=== PATIENT | female | born 1935 | race Caucasian/White ===

== ENCOUNTER 2017-07-02 09:24 | Observation (INO) | payer OTHER ==
[2017-07-02] MEDS ORDERED: Sodium Chloride 0.9% 5 ML Syringe FLUSH PRN ×2 (09:33→11:00)
--- NOTE | 2017-07-02 09:39 | EDM.PDOC ---
ED HPI GENERAL MEDICAL PROBLEM - General Chief Complaint: Cardiovascular Problem Stated Complaint: HEART RATE FAST Time Seen by Provider: 07/02/17 09:35 Source of Information: Reports: Patient History Limitations: Reports: No Limitations - History of Present Illness INITIAL COMMENTS - FREE TEXT/NARRATIVE: 81 YO WF presents to ER with 3 day history of palpitations. Pt reports episodes have occurred frequently but unsure how long they last. Pt denies any chest pain , shortness of breath or dizziness. Pt reports a past history of similar palpitations requiring MD visit but unsure of diagnosis or medical treatment. Pt with PMH of hypothyroidism and Htn. Onset Date: 06/30/17 Duration: Day(s): (3) Location: Reports: Chest Severity: Mild Improves with: Reports: Rest Worsens with: Reports: Movement Associated Symptoms: Reports: Weakness. Denies: Chest Pain, Cough, Diaphoresis , Fever/Chills, Nausea/Vomiting, Shortness of Breath, Syncope - Related Data Allergies Allergy/AdvReac Type Severity Reaction Status Date / Time No Known Allergies Allergy Verified 07/02/17 10:47 Home Meds: Home Meds Calcium Carbonate [Calcium] 500 mg PO BID 07/02/17 [History] Latanoprost [Latanoprost] 1 drop EYEBOTH BEDTIME 07/02/17 [History] Levothyroxine Sodium [Synthroid] 100 mcg PO ACBREAKFAST 07/02/17 [History] Lovastatin [Lovastatin] 40 mg PO BEDTIME 07/02/17 [History] Oxybutynin Chloride [Oxybutynin Chloride] 5 mg PO BEDTIME 07/02/17 [History] Timolol Maleate [Timolol Maleate] 1 drop EYEBOTH DAILY 07/02/17 [History] Zolpidem Tartrate [Zolpidem Tartrate] 5 mg PO BEDTIME PRN 07/02/17 [History] amLODIPine Besylate [Amlodipine Besylate] 10 mg PO DAILY 07/02/17 [History] glipiZIDE [Glipizide Xl] 10 mg PO DAILY 07/02/17 [History] ED ROS GENERAL - Review of Systems Review Of Systems: See Below Constitutional: Reports: No Symptoms HEENT: Reports: No Symptoms Respiratory: Reports: No Symptoms Cardiovascular: Reports: Palpitations. Denies: Chest Pain, Edema, Lightheadedness, Syncope Endocrine: Reports: No Symptoms GI/Abdominal: Reports: No Symptoms : Reports: No Symptoms Musculoskeletal: Reports: No Symptoms Skin: Reports: No Symptoms Neurological: Reports: No Symptoms Psychiatric: Reports: No Symptoms Hematologic/Lymphatic: Reports: No Symptoms Immunologic: Reports: No Symptoms ED EXAM, GENERAL - Physical Exam Exam: See Below Exam Limited By: No Limitations General Appearance: Alert, WD/WN, No Apparent Distress Nose: Normal Inspection, Normal Mucosa, No Blood Throat/Mouth: Normal Inspection, Normal Lips, Normal Teeth, Normal Gums, Normal Oropharynx, Normal Voice, No Airway Compromise Head: Atraumatic, Normocephalic Neck: Normal Inspection, Supple, Non-Tender, Full Range of Motion Respiratory/Chest: No Respiratory Distress, Lungs Clear, Normal Breath Sounds, No Accessory Muscle Use, Chest Non-Tender Cardiovascular: No Edema, No JVD, No Murmur, No Rub, Tachycardia, Irregularly Irregular GI/Abdominal: Normal Bowel Sounds, Soft, Non-Tender, No Organomegaly, No Distention, No Abnormal Bruit, No Mass Back Exam: Normal Inspection, Full Range of Motion, NT Extremities: Normal Inspection, Normal Range of Motion, Non-Tender, Normal Capillary Refill, No Pedal Edema Neurological: Alert, Oriented, CN II-XII Intact, Normal Cognition, Normal Gait, Normal Reflexes, No Motor/Sensory Deficits Psychiatric: Normal Affect, Normal Mood Skin Exam: Warm, Dry, Intact, Normal Color, No Rash Lymphatic: No Adenopathy EKG INTERPRETATION EKG Date: 07/02/17 Time: 09:49 Rhythm: A-Fib Rate (Beats/Min): 110 [place]: Normal P-Wave: Absent QRS: Normal ST-T: Normal QT: Normal Comparison: NA - No Prior EKG Course - Vital Signs Last Recorded V/S: Last Vital Signs Temp 36.0 C 07/02/17 09:48 Pulse 104 H 07/02/17 09:48 Resp 22 H 07/02/17 09:48 BP 134/63 07/02/17 09:48 Pulse Ox 94 L 07/02/17 09:48 - Orders/Labs/Meds Orders: Active Orders 24 hr Category Date Time Status Patient Status Manage Transfer [TRANSFER] Routine ADT 07/02/17 10:58 Ordered Patient Status [ADT] Routine ADT 07/02/17 11:00 Ordered Bedrest Bathroom Privileges [RC] ASDIRECTED Care 07/02/17 11:00 Active Cardiac Monitoring [RC] CONTINUOUS Care 07/02/17 11:01 Active EKG Documentation Completion [RC] ASDIRECTED Care 07/02/17 09:34 Active Oxygen Therapy [RC] PRN Care 07/02/17 11:00 Active Peripheral IV Care [RC] . DIRECTED Care 07/02/17 09:34 Active Peripheral IV Care [RC] . DIRECTED Care 07/02/17 11:02 Active VTE/DVT Education [RC] PER UNIT ROUTINE Care 07/02/17 11:00 Active Vital Signs [RC] Q4H Care 07/02/17 11:00 Active 2 Gram Sodium Diet [DIET] Diet 07/02/17 Lunch Active Chest 1V Frontal [CR] Stat Exams 07/02/17 09:33 Ordered BASIC METABOLIC PANEL,BMP [CHEM] AM Lab 07/03/17 05:11 Ordered CBC WITH AUTO DIFF [HEME] AM Lab 07/03/17 05:11 Ordered MAGNESIUM [CHEM] AM Lab 07/03/17 05:11 Ordered TROPONIN I [CHEM] AM Lab 07/03/17 05:11 Ordered TROPONIN I [CHEM] Routine Lab 07/02/17 23:00 Ordered TROPONIN I [CHEM] Timed Lab 07/02/17 17:00 Ordered Diltiazem [Cardizem CD] Med 07/02/17 11:15 Active 120 mg PO DAILY Sodium Chloride 0.9% [Syrex Flush] Med 07/02/17 09:33 Active 5 ml FLUSH Q8HR PRN Sodium Chloride 0.9% [Syrex Flush] Med 07/02/17 11:00 Active 5 ml FLUSH Q8HR PRN Peripheral IV Insertion Adult [OM.PC] Routine Oth 07/02/17 09:33 Ordered Peripheral IV Insertion Adult [OM.PC] Routine Oth 07/02/17 11:00 Ordered Resuscitation Status Routine Resus Stat 07/02/17 11:00 Ordered EKG 12 Lead [EK] Routine Ther 07/02/17 09:33 Ordered Medication Orders Diltiazem HCl (Cardizem Cd) 120 mg PO DAILY EDILIA Sodium Chloride (Syrex Flush) 5 ml FLUSH Q8HR PRN PRN Reason: Keep Vein Open Sodium Chloride (Syrex Flush) 5 ml FLUSH Q8HR PRN PRN Reason: Keep Vein Open Labs: Laboratory Tests 07/02/17 07/02/17 07/02/17 Range/Units 09:52 09:52 09:52 WBC 6.7 (5.0-10.0) 10^3/uL RBC 4.55 (3.80-5.50) 10^6/uL Hgb 12.0 (12.0-16.0) g/dL Hct 38.0 (37.0-47.0) % MCV 83.6 (82.0-92.0) fL MCH 26.5 L (27.0-31.0) pg MCHC 31.7 L (32.0-36.0) g/dL RDW 13.8 (11.5-14.5) % Plt Count 205 (150-300) 10^3/uL MPV 9.0 (7.4-10.4) fL Neut % (Auto) 65.6 (50.0-70.0) % Lymph % (Auto) 18.8 L (20.0-40.0) % Barry % (Auto) 11.1 H (2.0-8.0) % Eos % (Auto) 3.5 H (1.0-3.0) % Baso % (Auto) 1.0 (0.0-1.0) % Neut # (Auto) 4.4 (2.5-7.0) 10^3/uL Lymph # (Auto) 1.3 (1.0-4.0) 10^3/uL Barry # (Auto) 0.7 (0.1-0.8) 10^3/uL Eos # (Auto) 0.2 (0.1-0.3) 10^3/uL Baso # (Auto) 0.1 (0.0-0.1) 10^3/uL PT 9.9 (8.9-11.4) SEC INR 1.0 (0.9-1.1) APTT 25.4 (20.8-31.2) SEC Sodium 142 (136-145) mmol/L Potassium 4.1 (3.3-5.3) mmol/L Chloride 106 (98-115) mmol/L Carbon Dioxide 28.2 (21.0-32.0) mmol/L BUN 17 (6-25) mg/dL Creatinine 0.80 (0.51-1.17) mg/dL Est Cr Clr Drug Dosing 50.75 mL/min Estimated GFR (MDRD) > 60 mL/min Glucose 132 H (70-110) mg/dL Calcium 7.9 L (8.7-10.3) mg/dL Total Bilirubin 0.5 (0.2-1.0) mg/dL AST 11 L (15-37) U/L ALT 13 (12-78) U/L Alkaline Phosphatase 93 (46-116) IU/L Creatine Kinase 55 (26-276) U/L CK-MB (CK-2) 0.60 (0.00-4.30) ng/mL Troponin I < 0.04 (0.00-0.070) ng/mL Total Protein 6.7 (6.4-8.2) g/dL Albumin 3.15 (3.00-4.80) g/dL Meds: Medications Generic Name Dose Route Start Last Admin Trade Name Freq PRN Reason Stop Dose Admin Diltiazem HCl 120 mg 07/02/17 11:15 Cardizem Cd PO DAILY EDILIA Sodium Chloride 5 ml 07/02/17 09:33 Syrex Flush FLUSH Q8HR PRN Keep Vein Open Sodium Chloride 5 ml 07/02/17 11:00 Syrex Flush FLUSH Q8HR PRN Keep Vein Open - Radiology Interpretation Free Text/Narrative:: CXR- NAD Departure - Departure Time of Disposition: 10:54 Disposition: Refer to Observation Condition: Fair Clinical Impression: Atrial fibrillation Qualifiers: Atrial fibrillation type: paroxysmal Qualified Code(s): I48.0 - Paroxysmal atrial fibrillation - Discharge Information Referrals: Shelbi Fernnadez MD [Primary Care Provider] - Forms: ED Department Discharge - My Orders Last 24 Hours: My Active Orders 07/02/17 09:33 Chest 1V Frontal [CR] Stat Sodium Chloride 0.9% [Syrex Flush] 5 ml FLUSH Q8HR PRN Peripheral IV Insertion Adult [OM.PC] Routine EKG 12 Lead [EK] Routine 07/02/17 09:34 EKG Documentation Completion [RC] ASDIRECTED Peripheral IV Care [RC] . DIRECTED 07/02/17 10:58 Patient Status Manage Transfer [TRANSFER] Routine 07/02/17 11:00 Patient Status [ADT] Routine Bedrest Bathroom Privileges [RC] ASDIRECTED Oxygen Therapy [RC] PRN VTE/DVT Education [RC] PER UNIT ROUTINE Vital Signs [RC] Q4H Sodium Chloride 0.9% [Syrex Flush] 5 ml FLUSH Q8HR PRN Peripheral IV Insertion Adult [OM.PC] Routine Resuscitation Status Routine 07/02/17 11:01 Cardiac Monitoring [RC] CONTINUOUS 07/02/17 11:02 Peripheral IV Care [RC] . DIRECTED 07/02/17 11:15 Diltiazem [Cardizem CD] 120 mg PO DAILY 07/02/17 17:00 TROPONIN I [CHEM] Timed 07/02/17 23:00 TROPONIN I [CHEM] Routine 07/02/17 Lunch 2 Gram Sodium Diet [DIET] 07/03/17 05:11 BASIC METABOLIC PANEL,BMP [CHEM] AM CBC WITH AUTO DIFF [HEME] AM MAGNESIUM [CHEM] AM TROPONIN I [CHEM] AM - Assessment/Plan Last 24 Hours: My Active Orders 07/02/17 09:33 Chest 1V Frontal [CR] Stat Sodium Chloride 0.9% [Syrex Flush] 5 ml FLUSH Q8HR PRN Peripheral IV Insertion Adult [OM.PC] Routine EKG 12 Lead [EK] Routine 07/02/17 09:34 EKG Documentation Completion [RC] ASDIRECTED Peripheral IV Care [RC] . DIRECTED 07/02/17 10:58 Patient Status Manage Transfer [TRANSFER] Routine 07/02/17 11:00 Patient Status [ADT] Routine Bedrest Bathroom Privileges [RC] ASDIRECTED Oxygen Therapy [RC] PRN VTE/DVT Education [RC] PER UNIT ROUTINE Vital Signs [RC] Q4H Sodium Chloride 0.9% [Syrex Flush] 5 ml FLUSH Q8HR PRN Peripheral IV Insertion Adult [OM.PC] Routine Resuscitation Status Routine 07/02/17 11:01 Cardiac Monitoring [RC] CONTINUOUS 07/02/17 11:02 Peripheral IV Care [RC] . DIRECTED 07/02/17 11:15 Diltiazem [Cardizem CD] 120 mg PO DAILY 07/02/17 17:00 TROPONIN I [CHEM] Timed 07/02/17 23:00 TROPONIN I [CHEM] Routine 07/02/17 Lunch 2 Gram Sodium Diet [DIET] 07/03/17 05:11 BASIC METABOLIC PANEL,BMP [CHEM] AM CBC WITH AUTO DIFF [HEME] AM MAGNESIUM [CHEM] AM TROPONIN I [CHEM] AM Assessment:: 1. Atrial Fibrillation CVR Plan: 1. Admit for 23 hour obs for Atrial Fib 2. consider starting rate control medication and anti-coagulation 3. supportive care
[2017-07-02 10:44] LABS: CHLORIDE,CL 106 mmol/L (98-115); SODIUM,NA 142 mmol/L (136-145)
[2017-07-02] MEDS ORDERED: Zolpidem 5 MG Tab PO PRN (12:07)
--- NOTE | 2017-07-02 12:17 | PCM.HP ---
H&P History of Present Illness - General Date of Service: 07/02/17 Source of Information: Patient, Family, RN History Limitations: Reports: No Limitations - History of Present Illness Initial Comments - Free Text/Narative: Presents for concerns of palpitations. she states they have been present over the past 3 days intermittent. Description of a flutter sensation in her chest. the prior 2 days symptoms have occurred in the evening. There has been no chest pain, SOB, diaphoresis, nausea or vomiting. No dizziness or lightheadedness. She states she remembers this happening in the remote past x 1. Approximately 5 to 6 years ago. there has been no recent exacerbation until the past 3 days. Onset of Symptoms: Reports: Other (Monday evening) Symptom Onset Date: 06/30/17 Duration of Symptoms: Reports: Minutes:, Intermittent Location: Reports: Chest Quality: Reports: Other (flutter sensation) Severity: Moderate Improves with: Reports: Rest Worsens with: Reports: None Associated Symptoms: Reports: No Other Symptoms - Related Data Allergies/Adverse Reactions: Allergies Allergy/AdvReac Type Severity Reaction Status Date / Time No Known Allergies Allergy Verified 07/02/17 10:47 Home Medications: Home Meds Calcium Carbonate [Calcium] 500 mg PO BID 07/02/17 [History] Latanoprost [Latanoprost] 1 drop EYEBOTH BEDTIME 07/02/17 [History] Levothyroxine Sodium [Synthroid] 100 mcg PO ACBREAKFAST 07/02/17 [History] Lovastatin [Lovastatin] 40 mg PO BEDTIME 07/02/17 [History] Oxybutynin Chloride [Oxybutynin Chloride] 5 mg PO BEDTIME 07/02/17 [History] Timolol Maleate [Timolol Maleate] 1 drop EYEBOTH DAILY 07/02/17 [History] Zolpidem Tartrate [Zolpidem Tartrate] 5 mg PO BEDTIME PRN 07/02/17 [History] amLODIPine Besylate [Amlodipine Besylate] 10 mg PO DAILY 07/02/17 [History] glipiZIDE [Glipizide Xl] 10 mg PO DAILY 07/02/17 [History] Past Medical History Cardiovascular History: Reports: High Cholesterol, Hypertension, Other (See Below) (hypercholesterolemia) Respiratory History: Reports: COPD Musculoskeletal History: Reports: Osteoarthritis Endocrine/Metabolic History: Reports: Diabetes, Type II, Hypothyroidism, Other ( See Below) (history of thyroid cancer) Hematologic History: Reports: Anemia - Past Surgical History HEENT Surgical History: Reports: Other (See Below) (thyroidectomey) GI Surgical History: Reports: Appendectomy, Cholecystectomy Female Surgical History: Reports: Hysterectomy Musculoskeletal Surgical History: Reports: Joint Replacement (laminectomy) Social & Family History - Family History Family Medical History: Noncontributory - Tobacco Use Smoking Status *Q: Never Smoker - Living Situation & Occupation Living situation: Reports: , Other (resides at the [facility] [place]) H&P Review of Systems - Review of Systems: Review Of Systems: See Below General: Reports: No Symptoms HEENT: Reports: No Symptoms Pulmonary: Reports: No Symptoms Cardiovascular: Reports: Palpitations. Denies: Chest Pain, Dyspnea on Exertion , Lightheadedness Gastrointestinal: Reports: No Symptoms Genitourinary: Reports: Other (urinary frequency at night. does take Ditropan) Musculoskeletal: Reports: No Symptoms Skin: Reports: No Symptoms Neurological: Reports: No Symptoms Exam - Exam Exam: See Below - Vital Signs Vital Signs: Last Vital Signs Temp 96.8 F 07/02/17 09:48 Pulse 104 H 07/02/17 09:48 Resp 22 H 07/02/17 09:48 BP 134/63 07/02/17 09:48 Pulse Ox 94 L 07/02/17 09:48 Weight: 180 lb - Exam General: Alert, Oriented, Cooperative HEENT: Conjunctiva Clear, Mucosa Moist & [place] Neck: Supple Lungs: Clear to Auscultation Cardiovascular: Irregular Rhythm GI/Abdominal Exam: Normal Bowel Sounds, Soft, Non-Tender Back Exam: Normal Inspection Extremities: Normal Inspection - Patient Data Result Diagrams: 07/02/17 09:52 07/02/17 09:52 *Q Meaningful Use (ADM) - VTE *Q VTE Criteria *Q: - Stroke *Q Stroke Criteria *Q: - AMI *Q AMI Criteria *Q: Problem List Initiated/Reviewed/Updated: Yes Orders Last 24hrs: Active Orders 24 hr Category Date Time Status Calcium Carbonate [Calcium] Med 07/03/17 09:00 Ordered 500 mg PO BID Diltiazem [Cardizem CD] Med 07/02/17 11:15 Active 120 mg PO DAILY Latanoprost [Xalatan 0.005% Ophth Soln] Med 07/02/17 21:00 Ordered DOSE ml EYEBOTH BEDTIME Levothyroxine [Synthroid] Med 07/03/17 07:30 Ordered 100 mcg PO ACBREAKFAST Lovastatin [Lovastatin] Med 07/02/17 21:00 Ordered 40 mg PO BEDTIME Oxybutynin Med 07/02/17 21:00 Ordered 5 mg PO BEDTIME Timolol Maleate [Timolol Maleate] Med 07/03/17 09:00 Ordered 1 drop EYEBOTH DAILY Zolpidem [Ambien] Med 07/02/17 12:07 Ordered 5 mg PO BEDTIME PRN amLODIPine Besylate [Amlodipine Besylate] Med 07/03/17 09:00 Ordered 10 mg PO DAILY glipiZIDE [Glipizide Xl] Med 07/03/17 09:00 Ordered 10 mg PO DAILY Medication Orders Diltiazem HCl (Cardizem Cd) 120 mg PO DAILY EDILIA Latanoprost (Xalatan 0.005% Ophth Soln) ml EYEBOTH BEDTIME EDILIA Levothyroxine Sodium (Synthroid) 100 mcg PO ACBREAKFAST EDILIA Non-Formulary Medication (Amlodipine Besylate [Amlodipine Besylate]) 10 mg PO DAILY EDILIA Non-Formulary Medication (Calcium Carbonate [Calcium]) 500 mg PO BID EDILIA Non-Formulary Medication (Glipizide [Glipizide Xl]) 10 mg PO DAILY EDILIA Non-Formulary Medication (Lovastatin [Lovastatin]) 40 mg PO BEDTIME EDILIA Non-Formulary Medication (Timolol Maleate [Timolol Maleate]) 1 drop EYEBOTH DAILY EDILIA Oxybutynin Chloride (Oxybutynin) 5 mg PO BEDTIME EDILIA Sodium Chloride (Syrex Flush) 5 ml FLUSH Q8HR PRN PRN Reason: Keep Vein Open Sodium Chloride (Syrex Flush) 5 ml FLUSH Q8HR PRN PRN Reason: Keep Vein Open Zolpidem Tartrate (Ambien) 5 mg PO BEDTIME PRN PRN Reason: Insomnia Assessment/Plan Comment:: assessment and plan. A-fib with rapid ventricular response. EKG obtained. cbc, TSH, bmp,magesium, troponin obtained. series labs to follow. CXR will be obtained. Patient to be placed on telemetry with routine telemetry orders. Diltiazem 120 mg initiated oral. Eliquis 5 mg BID. Type 2 diabetes. Receives Glipizide. Hypercholesterolemia. Treated with Mevacor. HTN. Managed with Norvasc, Hypothyroidism. receives Levothyroxine. Insomnia. Takes Ambien 5 mg at HS OAB. Ditropan as needed. Discussed case/observation admission with Dr. Peterson.
[2017-07-02] MEDS: Diltiazem 120 MG Cap.CD PO SCH (12:33)
[2017-07-02] MEDS: Apixaban 5 MG Tab PO SCH (20:24)
[2017-07-02] MEDS ORDERED: Oxybutynin 5 MG Tab PO SCH (21:00)
[2017-07-02] MEDS ORDERED: Latanoprost 0.005% Ophth Soln 2.5 ML Bottle EYEBOTH SCH (21:00)
[2017-07-03] MEDS ORDERED: Levothyroxine 100 MCG Tab PO SCH (07:30)
[2017-07-03 08:08] LABS: CHLORIDE,CL 107 mmol/L (98-115); SODIUM,NA 143 mmol/L (136-145)
[2017-07-03] MEDS: Apixaban 5 MG Tab PO SCH ×2 (08:37→11:42)
[2017-07-03] MEDS: Diltiazem 120 MG Cap.CD PO SCH (08:37)
[2017-07-03] MEDS ORDERED: Calcium Carbonate 500 MG Tab.Chew PO SCH (09:00)
[2017-07-03] MEDS ORDERED: amLODIPine 5 MG Tab PO SCH (09:00)
[2017-07-03] MEDS ORDERED: glipiZIDE 5 MG Tab.ER PO SCH (09:00)
[2017-07-03] MEDS ORDERED: Timolol Maleate 0.5% Ophth Soln 15 ML Bottle EYEBOTH SCH (09:00)
--- NOTE | 2017-07-03 10:20 | PCM.DCSUM1 ---
Discharge Summary - Hospital Course Free Text/Narrative:: Pt was admitted to [facility] for observation after presenting to the ER with 3 days of intermittent heart palpitations which she described at a flutter sensation in her chest. There was no chest pain, SOB, diaphoresis, nausea or vomiting. No dizziness or lightheadedness. She was admitted to Acute care/observation with AFib, RVR and started on diltiazem 120 mg daily for rate control and Eliquis 5 mg bid for anticoagulation. Pt reports similar symptoms in the remote past x 1. Approximately 5 to 6 years ago. A review of her [facility] chart ECHO in 2011 shows: Ejection fraction was estimated to be 60 %. There were no regionalwall motion abnormalities. Wall thickness was moderately increased. Aortic valve, LVOT: The valve was probably tricuspid. Aortic cusps demonstrated mildly increased thickness. There was mild regurgitation. Mitral valve: There was minimal leaflet thickening. There was mild regurgitation. Pt has been on no anticoagulation since then. On an EKG earlier this year (11/01/16) she was in sinus bradycardia, heart rate 59. On day of discharge her heart rate is 84, She is on telemetry and continues in AFib. She reports no further palpitations, states she feels well and is ready to go home. Pt has hypothyroidism post thyroidectomy for thyroid cancer. TSH 05/02/17 was borderline low at 0.41. She has been on levothyroxine 100 mcg. TSH today continues low at 0.450. Pt has diabetes managed with glipizide XL 10 mg daily. She is on a statin. Pt has hypertension managed with amlodipine 10 mg daily. - Discharge Data Discharge Date: 07/03/17 Discharge Disposition: Home, Self-Care 01 Condition: Good - Discharge Diagnosis/Problem(s) (1) Atrial fibrillation SNOMED Code(s): 58576018 ICD Code: I48.91 - UNSPECIFIED ATRIAL FIBRILLATION Status: Acute Current Visit: Yes Qualifiers: Atrial fibrillation type: paroxysmal Qualified Code(s): I48.0 - Paroxysmal atrial fibrillation (2) Hypothyroidism SNOMED Code(s): 87630736 ICD Code: E03.9 - HYPOTHYROIDISM, UNSPECIFIED Status: Acute Current Visit : Yes Qualifiers: Hypothyroidism type: postoperative Qualified Code(s): E89.0 - Postprocedural hypothyroidism - Patient Summary/Data Recommended Follow-up Testing/Procedures: Follow up with PCP in 1 week. REcheck TSH in 6-8 weeks. At that time can decide if repeat ECHO is indicated. Hospital Course: Pt was admitted to [facility] for observation after presenting to the ER with 3 days of intermittent heart palpitations which she described at a flutter sensation in her chest. There was no chest pain, SOB, diaphoresis, nausea or vomiting. No dizziness or lightheadedness. She was admitted to Acute care/observation with AFib, RVR and started on diltiazem 120 mg daily for rate control and Eliquis 5 mg bid for anticoagulation. On discharge she denies any palpitations or fluttering sensation. Heart rate is 80s 1. AFib with RVR: Will continue on eliquis 5 mg bid for anticoagulation. She has been on Amlodipine for htn. and was started on diltiazem in ER for rate control. Will stop the diltiazem, a second Ca channel lazaro and change to Metoprolol succinate 25 mg daily. BP has been acceptable in the hospital at 111 /65 while on both calcium channel blockers. 2. She has hypothryoidism and has been on levothryoxine 100 mcg. TSH 0.450 may be contributing/cause of the AFib with RVR. Will decrease levothyroxine to 88 mcg daily and follow up in the clinic with a repeat TSH in 6-8 weeks. Given her age and previous ECHO with minimal valvular abnormalities, will determine if repeat ECHO is warranted after TSH is improved. 3. Hypertension: continue on amlodipine. Will monitor BP with addition of metoprolol for rate control. 4. Diabetes: continue on glipizide and statin. She is to follow up with PCP in 1 week. - Patient Instructions Diet: Diabetic Diet Activity: As Tolerated Showering/Bathing: May Shower - Discharge Plan Prescriptions/Med Rec: Apixaban [Eliquis] 5 mg PO BID #60 tablet Levothyroxine [Synthroid] 88 mcg PO ACBREAKFAST 60 Days tablet Metoprolol Succinate [Toprol XL] 25 mg PO DAILY #30 tab.er Home Medications: Home Meds Calcium Carbonate [Calcium] 500 mg PO BID 07/02/17 [History] Latanoprost 1 drop EYEBOTH BEDTIME 07/02/17 [History] Lovastatin 40 mg PO BEDTIME 07/02/17 [History] Oxybutynin Chloride 5 mg PO BEDTIME 07/02/17 [History] Timolol Maleate 1 drop EYEBOTH DAILY 07/02/17 [History] Zolpidem Tartrate 5 mg PO BEDTIME PRN 07/02/17 [History] amLODIPine Besylate [Amlodipine Besylate] 10 mg PO DAILY 07/02/17 [History] glipiZIDE [Glipizide Xl] 10 mg PO DAILY 07/02/17 [History] Apixaban [Eliquis] 5 mg PO BID #60 tablet 07/03/17 [Rx] Calcium Carbonate [Tums] 500 mg PO BID tab.chew 07/03/17 [Rx] Levothyroxine [Synthroid] 88 mcg PO ACBREAKFAST 60 Days tablet 07/03/17 [Rx] Metoprolol Succinate [Toprol XL] 25 mg PO DAILY #30 tab.er 07/03/17 [Rx] Forms: ED Department Discharge Referrals: Shelbi Fernandez MD [Primary Care Provider] - - General Info Date of Service: 07/03/17 Admission Dx/Problem (Free Text: AFib with RVR Hypothyroidism, overmedicated Diabetes Subjective Update: Reports feeling well. Denies any further palpitations. No cardiorespiratory symptoms - Review of Systems General: Reports: No Symptoms HEENT: Reports: No Symptoms Pulmonary: Reports: No Symptoms Cardiovascular: Reports: No Symptoms (denies palpitations, shortness of breath, chest pain.) Gastrointestinal: Reports: No Symptoms Genitourinary: Reports: No Symptoms Musculoskeletal: Reports: No Symptoms Skin: Reports: No Symptoms Neurological: Reports: No Symptoms Psychiatric: Reports: No Symptoms - Patient Data Vitals - Most Recent: Last Vital Signs Temp 98.1 F 07/03/17 06:33 Pulse 104 H 07/03/17 08:37 Resp 20 07/03/17 06:33 BP 111/65 07/03/17 08:37 Pulse Ox 95 07/03/17 06:33 Weight - Most Recent: 180 lb I&O - Last 24 hours: Intake & Output 07/02/17 07/03/17 07/03/17 22:59 06:59 14:59 Intake Total 800 300 Output Total 200 200 Balance 600 100 Lab Results - Last 24 hrs: Laboratory Results - last 24 hr 07/02/17 07/02/17 07/03/17 Range/Units 17:05 23:00 03:30 WBC (5.0-10.0) 10^3/uL RBC (3.80-5.50) 10^6/uL Hgb (12.0-16.0) g/dL Hct (37.0-47.0) % MCV (82.0-92.0) fL MCH (27.0-31.0) pg MCHC (32.0-36.0) g/dL RDW (11.5-14.5) % Plt Count (150-300) 10^3/uL MPV (7.4-10.4) fL Add Manual Diff Neutrophils % (Manual) (50-70) % Lymphocytes % (Manual) (20-40) % Monocytes % (Manual) (2-8) % Eosinophils % (Manual) (1-3) % Basophils % (Manual) (0-1) % Sodium (136-145) mmol/L Potassium (3.3-5.3) mmol/L Chloride (98-115) mmol/L Carbon Dioxide (21.0-32.0) mmol/L BUN (6-25) mg/dL Creatinine (0.51-1.17) mg/dL Est Cr Clr Drug Dosing mL/min Estimated GFR (MDRD) mL/min Glucose (70-110) mg/dL Calcium (8.7-10.3) mg/dL Magnesium (1.8-2.4) mg/dL Troponin I < 0.04 0.04 (0.00-0.070) ng/mL TSH, Ultra Sensitive (0.340-4.820) uIU/mL Specimen Type Urincc Urine Color Light yellow (YELLOW) Urine Appearance Clear (CLEAR) Urine pH 6.5 (5.0-9.0) Ur Specific [employer] 1.010 (1.005-1.030) Urine Protein Negative (NEGATIVE) mg/dL Urine Glucose (UA) Negative (NEGATIVE) mg/dL Urine Ketones Negative (NEGATIVE) mg/dL Urine Occult Blood Negative (NEGATIVE) Urine Nitrite Negative (NEGATIVE) Urine Bilirubin Negative (NEGATIVE) Urine Urobilinogen 0.2 (0.2-1.0) E.U./dL Ur Leukocyte Esterase Negative (NEGATIVE) Urine RBC Not seen /HPF Urine WBC 5-10 H /HPF Ur Epithelial Cells Rare /LPF Urine Bacteria Rare (NONE TO FEW) /HPF 07/03/17 07/03/17 07/03/17 Range/Units 07:15 07:15 07:15 WBC 6.2 (5.0-10.0) 10^3/uL RBC 4.16 (3.80-5.50) 10^6/uL Hgb 11.1 L (12.0-16.0) g/dL Hct 33.8 L (37.0-47.0) % MCV 81.2 L (82.0-92.0) fL MCH 26.8 L (27.0-31.0) pg MCHC 33.0 (32.0-36.0) g/dL RDW 14.3 (11.5-14.5) % Plt Count 171 (150-300) 10^3/uL MPV 9.2 (7.4-10.4) fL Add Manual Diff Yes Neutrophils % (Manual) 65 (50-70) % Lymphocytes % (Manual) 19 L (20-40) % Monocytes % (Manual) 10 H (2-8) % Eosinophils % (Manual) 6 H (1-3) % Basophils % (Manual) 0 (0-1) % Sodium 143 (136-145) mmol/L Potassium 3.6 (3.3-5.3) mmol/L Chloride 107 (98-115) mmol/L Carbon Dioxide 25.6 (21.0-32.0) mmol/L BUN 16 (6-25) mg/dL Creatinine 0.73 (0.51-1.17) mg/dL Est Cr Clr Drug Dosing 55.62 mL/min Estimated GFR (MDRD) > 60 mL/min Glucose 104 (70-110) mg/dL Calcium 7.6 L (8.7-10.3) mg/dL Magnesium 2.0 (1.8-2.4) mg/dL Troponin I < 0.04 (0.00-0.070) ng/mL TSH, Ultra Sensitive 0.450 (0.340-4.820) uIU/mL Specimen Type Urine Color (YELLOW) Urine Appearance (CLEAR) Urine pH (5.0-9.0) Ur Specific [employer] (1.005-1.030) Urine Protein (NEGATIVE) mg/dL Urine Glucose (UA) (NEGATIVE) mg/dL Urine Ketones (NEGATIVE) mg/dL Urine Occult Blood (NEGATIVE) Urine Nitrite (NEGATIVE) Urine Bilirubin (NEGATIVE) Urine Urobilinogen (0.2-1.0) E.U./dL Ur Leukocyte Esterase (NEGATIVE) Urine RBC /HPF Urine WBC /HPF Ur Epithelial Cells /LPF Urine Bacteria (NONE TO FEW) /HPF Med Orders - Current: Current Medications Amlodipine Besylate (Norvasc) 10 mg PO DAILY [facility] Last Admin: 07/03/17 08:37 Dose: 10 mg Apixaban (Eliquis) 5 mg PO BID [facility] Last Admin: 07/03/17 08:37 Dose: 5 mg Calcium Carbonate/Glycine (Tums) 500 mg PO BID [facility] Last Admin: 07/03/17 08:37 Dose: 500 mg Glipizide (Glucotrol Xl) 10 mg PO DAILY [facility] Last Admin: 07/03/17 08:37 Dose: 10 mg Latanoprost (Xalatan 0.005% Ophth Soln) 0 ml EYEBOTH BEDTIME [facility] Last Admin: 07/02/17 20:24 Dose: 1 drop Levothyroxine Sodium (Synthroid) 88 mcg PO ACBREAKFAST [facility] Lovastatin (Mevacor) 40 mg PO BEDTIME [facility] Last Admin: 07/02/17 20:24 Dose: 40 mg Metoprolol Succinate (Toprol Xl) 25 mg PO DAILY [facility] Oxybutynin Chloride (Oxybutynin) 5 mg PO BEDTIME [facility] Last Admin: 07/02/17 20:24 Dose: 5 mg Sodium Chloride (Syrex Flush) 5 ml FLUSH Q8HR PRN PRN Reason: Keep Vein Open Timolol Maleate (Timoptic 0.5% Ophth Soln) 0 ml EYEBOTH DAILY [facility] Last Admin: 07/03/17 08:41 Dose: 1 drop Zolpidem Tartrate (Ambien) 5 mg PO BEDTIME PRN PRN Reason: Insomnia Last Admin: 07/02/17 20:25 Dose: 5 mg Discontinued Medications Diltiazem HCl (Cardizem Cd) 120 mg PO DAILY [facility] Last Admin: 07/03/17 08:37 Dose: 120 mg Levothyroxine Sodium (Synthroid) 100 mcg PO ACBREAKFAST [facility] Last Admin: 07/03/17 07:31 Dose: 100 mcg Sodium Chloride (Syrex Flush) 5 ml FLUSH Q8HR PRN PRN Reason: Keep Vein Open - Exam General: Reports: Alert, Oriented, No Acute Distress Lungs: Reports: Clear to Auscultation Cardiovascular: Reports: Irregular Rhythm (heart rate irregular 84 BPM) GI/Abdominal Exam: Soft, Non-Tender Extremities: No Pedal Edema Psy/Mental Status: Reports: Alert, Normal Affect, Normal Mood EKG INTERPRETATION Rhythm: A-Fib *Q Meaningful Use (DIS) - VTE *Q VTE Criteria *Q: - Stroke *Q Stroke Criteria *Q: - AMI *Q AMI Criteria *Q:
[2017-07-04] MEDS ORDERED: Levothyroxine 88 MCG Tab PO SCH (07:30)
[2017-07-04] MEDS ORDERED: Metoprolol Succinate 25 MG Tab.ER PO SCH (09:00)
== END 2017-07-03 13:45 | disposition home or self-care (01) ==
LOC: KA.ED 09:24 → KA.MS 11:00
PROVIDERS: ADMIT Physician Assistant Medical; ATTEND Family Medicine
DX: I48.91 Unspecified atrial fibrillation (principal); E89.0 Postprocedural hypothyroidism; E11.9 Type 2 diabetes mellitus without complications; I10 Essential (primary) hypertension; E78.00 Pure hypercholesterolemia, unspecified; J44.9 Chronic obstructive pulmonary disease, unspecified; M19.90 Unspecified osteoarthritis, unspecified site; G47.00 Insomnia, unspecified; N32.81 Overactive bladder; Z85.850 Personal history of malignant neoplasm of thyroid; Z79.899 Other long term (current) drug therapy; Z90.49 Acquired absence of other specified parts of digestive tract; Z90.710 Acquired absence of both cervix and uterus
CPT/HCPCS: 36415; 71010; 80048; 80053; 81001; 82550; 82553; 83735; 84443; 84484; 85025; 85610; 85730; 93005; 99285; A9270; G0378

== ENCOUNTER 2017-07-17 09:50 | Inpatient (IN) | payer OTHER ==
[2017-07-17] MEDS ORDERED: Sodium Chloride 0.9% 5 ML Syringe FLUSH PRN (17:11)
[2017-07-17] MEDS ORDERED: Lidocaine 2% 100 MG/5 ML Syringe IVPUSH PRN (17:31)
[2017-07-17] MEDS ORDERED: Atropine 0.1 MG/ML 10 ML Syringe IVPUSH PRN (17:31)
[2017-07-17] MEDS ORDERED: EPINEPHrine 1:10,000 1 MG/10 ML Syringe IVPUSH PRN (17:31)
[2017-07-17] MEDS ORDERED: Nitroglycerin 0.4 MG Tab.SL SL PRN (17:31)
[2017-07-17] MEDS: Furosemide 40 MG/4 ML VIAL IVPUSH SCH (18:17)
[2017-07-17] MEDS: Latanoprost 0.005% Ophth Soln 2.5 ML Bottle EYEBOTH SCH (20:39)
[2017-07-17] MEDS: Zolpidem 5 MG Tab PO PRN (20:44)
[2017-07-17] MEDS: Oxybutynin 5 MG Tab PO SCH (20:44)
[2017-07-17] MEDS: Metoprolol Tartrate 50 MG Tab PO SCH (20:44)
[2017-07-17] MEDS: Apixaban 5 MG Tab PO SCH (20:44)
[2017-07-17] MEDS: Timolol Maleate 0.5% Ophth Soln 15 ML Bottle EYEBOTH SCH (20:47)
[2017-07-18] MEDS: Acetaminophen 325 MG Tab PO PRN (03:33)
[2017-07-18] MEDS: Furosemide 40 MG/4 ML VIAL IVPUSH SCH (09:35)
[2017-07-18] MEDS: glipiZIDE 5 MG Tab.ER PO SCH (09:35)
[2017-07-18] MEDS: Timolol Maleate 0.5% Ophth Soln 15 ML Bottle EYEBOTH SCH ×2 (09:36→21:01)
[2017-07-18] MEDS: Metoprolol Tartrate 50 MG Tab PO SCH ×2 (09:37→21:01)
[2017-07-18] MEDS: Apixaban 5 MG Tab PO SCH ×2 (09:53→21:01)
--- NOTE | 2017-07-18 17:16 | PN ---
07/18/2017 PATIENT NAME: LATONYA SAHNI CHIEF COMPLAINT: Does feel better. She has been placed on telemetry. Her heart rate has improved tremendously, however, still approximately 100 to 110. HISTORY: This 81-year-old female was admitted yesterday by Dr. Shelbi Fernandez and the patient came into the clinic and she was admitted for atrial fibrillation with rapid ventricular response. She was recently discharged from [facility] on 2016, when she was admitted for atrial fibrillation with RVR. At that time, I thought it was due to hypothyroidism. The patient's thyroid replacement therapy was reduced to 88 mcg daily and she states that she has continued on these doses over the past few days. However, when she was seen at the clinic, she felt quite weak and unsteady on her feet. She did have some increased trouble breathing. She does have congestive heart failure. Echocardiogram most recently in the clinic showed evidence of small pericardial effusion, bilateral pleural effusions with the EF of 50 with a marked dilated left atrium and right atrium. She has significant other risk factors that include hypertension and diabetes type 2. She was admitted in the hospital on telemetry for improved rate control. REVIEW OF SYSTEMS: GENERAL: Denies any fatigue. HEENT: Negative. CARDIAC: Denies any palpitations or lightheadedness. PHYSICAL EXAMINATION: VITAL SIGNS: Heart rate 112, blood pressure 117/71, O2 sats 93% on room air, respiratory rate 18, temperature is 98.5, weight is 186 with a 4-pound weight loss since admission, however, 4 pounds above her dry weight. GENERAL: She is alert and oriented. She is pink and perfusing. CV: Irregular rate and rhythm, greater than 100. RESPIRATORY: Lung sounds are clear to auscultation. EXTREMITIES: Mild edema in lower extremities. LABORATORY DATA: Sodium 139, potassium 3.6, BUN 16, creatinine 0.90, estimated GFR 60, glucose 89, calcium 7.6, triglycerides 83, cholesterol 150, LDL 77, HDL 56. IMPRESSION/PLAN: 1. Atrial fibrillation, acute on chronic with rapid ventricular response, improving heart rate. Now metoprolol increased to 50 mg p.o. b.i.d. May have to give digoxin. We will see how she does. CHADS2-VASc score high. Continue with Factor Xa Eliquis. Continue with telemetry. 2. Hypothyroidism. The patient had been on 88 mcg of thyroid replacement therapy. TSH in 04/2017 was 0.41. We are holding the thyroid replacement therapy at this time. 3. Hypertension. Blood pressure is currently adequate at 117/71, adequate mean arterial pressures despite tachycardia. Recent increase in beta- lazaro this admission. We will continue with calcium channel lazaro. Monitor for any edema. 4. Type 2 diabetes mellitus, fairly well under control. Recent hemoglobin A1c was 7.1%, adequate for her age. She is on high-risk glipizide. I do not see monotherapy metformin on her record. We will explore this. Creatinine is 0.9. 5. History of hyperlipidemia, she is on statin therapy. 6. Irritable bladder, on Ditropan. No confusion. 7. Heart failure with reduced ejection fraction, diastolic, concomitant pericardial effusions with bilateral pleural effusion. Aggressive incentive spirometer, diuretic therapy, entertain ETTA inhibitor versus calcium channel lazaro. We will see how she does. Upon more stabilization, continue with 2 g sodium diet. Continue with telemetry today. The patient is making improvement. May need digoxin for improved rate control. We will see how she does with increased doses of metoprolol. Likely, the patient could be released from the hospital tomorrow. /[id number]/MODL
[2017-07-18] MEDS: Simvastatin 20 MG Tab PO SCH (21:01)
[2017-07-18] MEDS: Zolpidem 5 MG Tab PO PRN (21:01)
[2017-07-18] MEDS: Latanoprost 0.005% Ophth Soln 2.5 ML Bottle EYEBOTH SCH (21:01)
[2017-07-18] MEDS: Oxybutynin 5 MG Tab PO SCH (21:01)
[2017-07-19] MEDS: Acetaminophen 325 MG Tab PO PRN (01:39)
[2017-07-19] MEDS: Apixaban 5 MG Tab PO SCH ×2 (08:04→21:03)
[2017-07-19] MEDS: Furosemide 40 MG/4 ML VIAL IVPUSH SCH (08:04)
[2017-07-19] MEDS: glipiZIDE 5 MG Tab.ER PO SCH (08:04)
[2017-07-19] MEDS: Timolol Maleate 0.5% Ophth Soln 15 ML Bottle EYEBOTH SCH ×2 (08:05→21:03)
[2017-07-19] MEDS: Metoprolol Tartrate 50 MG Tab PO SCH ×2 (08:05→21:03)
[2017-07-19] MEDS: Digoxin 125 MCG Tab PO SCH (09:08)
[2017-07-19] MEDS ORDERED: Digoxin 125 MCG Tab PO ONE (11:17)
--- NOTE | 2017-07-19 12:28 | PN ---
07/19/2017 PATIENT NAME: LATONYA SAHNI CHIEF COMPLAINT: Overall feels better, less shortness of breath, continues to diurese, now at her dry weight. She remains on telemetry. Heart rate has come down, however, still remains approximately 95-115 for heart rate. Digoxin x1 was given this morning. Beta lazaro has been increased. HISTORY: An 81-year-old female was admitted about [address] Mario due to atrial fibrillation, rapid ventricular response. 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 She was actually discharged from the [facility] on 2016 when she was holding her thyroid replacement therapy due to iatrogenic hyperthyroidism causing rapid ventricular response. We have also increased the beta lazaro. PHYSICAL EXAMINATION: VITAL SIGNS: The vital signs this morning; heart rate between 95 and 110. She is on telemetry. Weight is down to 182. She states that is her dry weight. Blood pressure 104/60, respiratory rate 18, O2 sats about 91-94% on room air. GENERAL: She is alert and oriented. CV: Irregular rate and rhythm around 100-108. RESPIRATORY: Lungs are now clear. She has no JVD. EXTREMITIES: She still has mild edema lower extremities. LABORATORY DATA: Sodium 139, potassium 3.6, BUN and creatinine normal. Triglycerides 83, cholesterol 150, LDL 77, HDL 56. IMPRESSION/PLAN: 1. Atrial fibrillation, acute on chronic with rapid ventricular response. She is requiring digoxin. This will require her to be placed in acute care status today, although she is improving. She will need better rate control. Metoprolol has been increased to 50 mg p.o. b.i.d. CHADS2-VASc score is high. We will continue on factor Xa Eliquis. We will continue with telemetry today, get her moving around. Digoxin will be given. Likely we will start low-dose ETTA inhibitor on her. 2. Hypothyroidism. Holding her thyroid replacement therapy right now. TSH April 2017 was 0.41. We will reassess that today. 3. Hypertension history. Actually, her blood pressures are low to normal. Hopefully, she can tolerate a low-dose ETTA inhibitor. We are holding calcium channel lazaro next type 2 diabetes. A1c 7.1% adequate for her age. We will continue with glipizide. Likely, we will start metformin as outpatient. Her creatinine is okay. 4. History of hyperlipidemia, on statin therapy. 5. Irritable bladder. She is on Ditropan. 6. Heart failure with reduced ejection fraction, diastolic with pericardial effusions and bilateral pleural effusions. We started her on ETTA inhibitor today and continued holding her calcium channel lazaro. We discussed this morning on rounds regarding reduced sodium in her diet. Continue on telemetry. Digoxin today. If we ever get her moving around, do anticipate discharge tomorrow. /[id number]/MODL MTDD
[2017-07-19] MEDS ORDERED: Melatonin 3 MG Tab PO PRN (20:29)
[2017-07-19] MEDS: Latanoprost 0.005% Ophth Soln 2.5 ML Bottle EYEBOTH SCH (21:02)
[2017-07-19] MEDS: Oxybutynin 5 MG Tab PO SCH (21:03)
[2017-07-19] MEDS: Simvastatin 20 MG Tab PO SCH (21:04)
[2017-07-19] MEDS: Zolpidem 5 MG Tab PO PRN (21:04)
[2017-07-20] MEDS: glipiZIDE 5 MG Tab.ER PO SCH (09:12)
[2017-07-20] MEDS: Apixaban 5 MG Tab PO SCH (09:12)
[2017-07-20] MEDS: Digoxin 125 MCG Tab PO SCH (09:12)
[2017-07-20] MEDS: Furosemide 40 MG/4 ML VIAL IVPUSH SCH (09:13)
[2017-07-20] MEDS: Metoprolol Tartrate 50 MG Tab PO SCH (09:13)
[2017-07-20] MEDS: Timolol Maleate 0.5% Ophth Soln 15 ML Bottle EYEBOTH SCH (09:14)
--- NOTE | 2017-07-21 08:57 | DISCH ---
FINAL DIAGNOSIS: 1. Atrial fibrillation with rapid ventricular response, improved heart rate. 2. Iatrogenic hyperthyroidism, reduced thyroid medication on discharge. 3. Heart failure with reduced ejection fraction, diastolic with pericardial effusions and bilateral pleural effusion. HISTORY: This 81-year-old female was initially admitted by Dr. Shelbi Fernandez when the patient came into the clinic due to atrial fibrillation, rapid ventricular response. She had recently been discharged from [facility] on 2016 when she was admitted also for atrial fibrillation with RVR. It appears likely due to her suppressive therapy of thyroid. We have been holding her thyroid medication while hospitalized. It was reduced to 88 mcg and then she stated she continued these doses over the past few days, however, when she was seen in the clinic, she felt quite weak, unsteady on her feet, trouble breathing. She does have congestive heart failure and so it was mildly exacerbated during this hospital stay. Echocardiogram most recently in the clinic showed evidence of small pericardial effusion, small bilateral effusions with EF of 50 with marked dilated left atrium and right atrium. She does have significant other risk factors including hypertension and type 2 diabetes. HOSPITAL COURSE: Hospital course went pretty good. She never became hemodynamically unstable. She is back to her baseline weight of 182, which is a loss of approximately 8-9 pounds while hospitalized. She remained on telemetry. She did have significant RVR 120s to 140s. Metoprolol was increased to 50 b.i.d., digoxin was added for improved rate control. Upon the time she was discharged, her rate was 70s to 90s. Thyroid was checked, it was 3.1 the day of discharge. This is a significant increase from 0.4 two weeks ago, was started on a low-dose ETTA inhibitor 2.5 mg. Thyroid medication was held. She tolerated her diet. She never became hemodynamically unstable. She ambulated in her room quite significantly. She remained on telemetry. We held her amlodipine and discontinued this on discharge. LABORATORY DATA: Sodium 144, potassium 3.7, BUN and creatinine normal. Calcium 7.6. LDL 77, HDL 56, TSH 3.3. PHYSICAL EXAM ON DISCHARGE: LUNGS: Clear to auscultation. CV: Irregular rate, controlled rhythm below 100. No JVD. EXTREMITIES: No edema, lower extremities. The patient euvolemic. MEDICATION ADJUSTMENTS: Lisinopril 2.5 mg p.o. daily (newly added); amlodipine discontinued; metoprolol tartrate 62.5 mg a.m., 50 mg p.m. (newly adjusted); continue on Eliquis. The patient also on beta-lazaro eyedrops, levothyroxine 44 mcg p.o. daily (50% dose reduction) due to rapidly rising TSH level. DISPOSITION: The patient will be discharged from the hospital. She was educated on her medication. She is to report any weight gain more than 3-5 pounds in one week or any increased shortness of breath. Low-sodium diet. She has been educated regarding this. She will follow up within one week. Monitor her thyroid levels very carefully or any lightheadedness or chest pain. /[id number]/MODL
== END 2017-07-20 11:20 | disposition home or self-care (01) | DRG 309 ==
LOC: KA.MS 09:50 → OBSVTOIN 07-19 09:50
PROVIDERS: ADMIT Internal Medicine; ATTEND Internal Medicine
DX: I48.91 Unspecified atrial fibrillation (principal); I50.30 Unspecified diastolic (congestive) heart failure; J90 Pleural effusion, not elsewhere classified; E05.90 Thyrotoxicosis, unspecified without thyrotoxic crisis or storm; E78.5 Hyperlipidemia, unspecified; E11.9 Type 2 diabetes mellitus without complications; I10 Essential (primary) hypertension; Z79.899 Other long term (current) drug therapy; Z88.8 Allergy status to other drugs, medicaments and biological substances
CPT/HCPCS: 36415; 80048; 80061; 82962; 84443; 96374; 96376; A9270-GY; G0378; G0379; J1940

== ENCOUNTER 2017-10-18 01:40 | Inpatient (IN) | payer OTHER ==
[2017-10-18] MEDS ORDERED: Sodium Chloride 0.9% 500 ML IV ONE (02:18)
[2017-10-18] MEDS ORDERED: Sodium Chloride 0.9% 5 ML Syringe FLUSH PRN (02:18)
[2017-10-18] MEDS ORDERED: Metoprolol Tartrate 5 MG/5 ML SDV IVPUSH ONE ×2 (02:21→04:15)
[2017-10-18] MEDS ORDERED: Ondansetron 4 MG/2 ML SDV IVPUSH ONE (02:21)
--- NOTE | 2017-10-18 02:37 | EDM.PDOC ---
ED HPI GENERAL MEDICAL PROBLEM - General Chief Complaint: Cardiovascular Problem Stated Complaint: fast heartrate Time Seen by Provider: 10/18/17 02:18 Source of Information: Reports: Patient, Family History Limitations: Reports: No Limitations - History of Present Illness INITIAL COMMENTS - FREE TEXT/NARRATIVE: Patient is an 81-year-old female who presents to the emergency department this morning via EMS with a complaint of tachycardia. Patient was found per EMS with heart rate in the 140s to 150s. Per family, patient developed symptoms at 2100 last evening. She complained that her heart was racing and she was little short of breath. Daughter said she was also confused. Patient denied any chest pain then or at present. Patient was seen by PCP yesterday and changed from metoprolol to 80 mg propanolol for her atrial fibrillation and hypertension condition. Symptoms began same day. Patient had one episode of nausea without vomiting at presentation in the emergency department. Patient denies fever, chest pain, headache, blurry vision, dizziness, abdominal pain, or any other medication change. Onset: Sudden Onset Date: 10/17/17 Onset Time: 21:00 Duration: Hour(s): Location: Reports: Chest Quality: Reports: Other (Denies chest pain) Improves with: Reports: None Worsens with: Reports: None Context: Reports: Other (At rest) Associated Symptoms: Reports: Nausea/Vomiting - Related Data Allergies Allergy/AdvReac Type Severity Reaction Status Date / Time No Known Allergies Allergy Verified 10/18/17 02:24 Home Meds: Home Meds Latanoprost 1 drop EYEBOTH BEDTIME 07/02/17 [History] Lovastatin 40 mg PO BEDTIME 07/02/17 [History] Zolpidem Tartrate 5 mg PO BEDTIME PRN 07/02/17 [History] glipiZIDE [Glipizide Xl] 10 mg PO DAILY 07/02/17 [History] Apixaban [Eliquis] 5 mg PO BID #60 tablet 07/03/17 [Rx] Timolol Maleate [Timoptic 0.5% Ophth Soln] 1 drop EYEBOTH BID 07/17/17 [History] Levothyroxine [Synthroid] 44 mcg PO ACBREAKFAST 60 Days #30 tablet 07/20/17 [Rx] Cholecalciferol (Vitamin D3) [D3-2000] 1,000 unit PO DAILY 10/18/17 [History] Lisinopril [Prinivil] 10 mg PO DAILY 10/18/17 [History] Propranolol HCl [Inderal LA] 80 mg PO DAILY 10/18/17 [History] Past Medical History HEENT History: Reports: Glaucoma, Impaired Vision Cardiovascular History: Reports: Afib, High Cholesterol, Hypertension Respiratory History: Reports: COPD Gastrointestinal History: Reports: None Genitourinary History: Reports: None Other Genitourinary History: frequency 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: , 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 (See Below) Other OB/BYN History: C Section X3 Musculoskeletal History: Reports: Osteoarthritis Neurological History: Reports: None Endocrine/Metabolic History: Reports: Diabetes, Type II, Hypothyroidism Hematologic History: Reports: Anemia Oncologic (Cancer) History: Reports: Thyroid - Past Surgical History GI Surgical History: Reports: Appendectomy, Cholecystectomy Female Surgical History: Reports: Hysterectomy Musculoskeletal Surgical History: Reports: Joint Replacement, Other (See Below) Other Musculoskeletal Surgeries/Procedures:: 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 Constitutional: Reports: No Symptoms HEENT: Reports: No Symptoms Respiratory: Reports: No Symptoms Cardiovascular: Reports: Palpitations Endocrine: Reports: No Symptoms GI/Abdominal: Reports: Nausea. Denies: Abdominal Pain, Black Stool, Bloody Stool, Diarrhea, Vomiting : Reports: No Symptoms Musculoskeletal: Reports: No Symptoms Skin: Reports: No Symptoms Neurological: Reports: Confusion Psychiatric: Reports: No Symptoms Hematologic/Lymphatic: Reports: No Symptoms Immunologic: Reports: No Symptoms ED EXAM, GENERAL - Physical Exam Exam: See Below Exam Limited By: No Limitations General Appearance: Alert, WD/WN, No Apparent Distress Eye Exam: Bilateral Eye: Normal Inspection Nose: Normal Inspection, No Blood Throat/Mouth: Normal Inspection, Normal Oropharynx, No Airway Compromise Head: Atraumatic, Normocephalic Neck: Normal Inspection, Supple, Non-Tender Respiratory/Chest: No Respiratory Distress, Rales (Bibasilar) Cardiovascular: Tachycardia, Irregularly Irregular GI/Abdominal: Normal Bowel Sounds, Soft, Non-Tender Back Exam: Normal Inspection. No: CVA Tenderness (L), CVA Tenderness (R) Extremities: Normal Inspection, No Pedal Edema Neurological: Confused Psychiatric: Normal Affect, Normal Mood Skin Exam: Warm, Dry, Intact, Normal Color, No Rash Lymphatic: No Adenopathy EKG INTERPRETATION EKG Date: 10/18/17 Time: 03:00 Rhythm: A-Fib Rate (Beats/Min): 143 Comparison: No Change Course - Orders/Labs/Meds Orders: Active Orders 24 hr Category Date Time Status Cardiac Monitoring [RC] . DIRECTED Care 10/18/17 02:18 Ordered EKG Documentation Completion [RC] ASDIRECTED Care 10/18/17 02:19 Ordered Peripheral IV Care [RC] . DIRECTED Care 10/18/17 02:19 Ordered Chest 1V Frontal [CR] Stat Exams 10/18/17 02:19 Ordered CBC WITH AUTO DIFF [HEME] Stat Lab 10/18/17 02:18 Ordered COMPREHENSIVE METABOLIC PN,CMP [CHEM] Stat Lab 10/18/17 02:18 Ordered INR,PT,PROTHROMBIN TIME [COAG] Stat Lab 10/18/17 02:18 Ordered MAGNESIUM [CHEM] Stat Lab 10/18/17 02:18 Ordered TROPONIN I [CHEM] Stat Lab 10/18/17 02:18 Ordered Sodium Chloride 0.9% [Normal Saline] 500 ml Med 10/18/17 02:18 Ordered IV .BOLUS Sodium Chloride 0.9% [Syrex Flush] Med 10/18/17 02:18 Ordered 5 ml FLUSH Q8HR PRN Peripheral IV Insertion Adult [OM.PC] Stat Oth 10/18/17 02:18 Ordered EKG 12 Lead [EK] Stat Ther 10/18/17 02:19 Ordered Medication Orders Sodium Chloride (Normal Saline) 500 mls @ 1,000 mls/hr IV .BOLUS ONE Stop: 10/18/17 02:47 Sodium Chloride (Syrex Flush) 5 ml FLUSH Q8HR PRN PRN Reason: Keep Vein Open Meds: Medications Generic Name Dose Route Start Last Admin Trade Name Freq PRN Reason Stop Dose Admin Sodium Chloride 500 mls @ 1,000 mls/hr 10/18/17 02:18 Normal Saline IV 04/11/18 02:47 .BOLUS ONE Sodium Chloride 5 ml 10/18/17 02:18 Syrex Flush FLUSH Q8HR PRN Keep Vein Open Discontinued Medications Generic Name Dose Route Start Last Admin Trade Name Freq PRN Reason Stop Dose Admin Metoprolol Tartrate 5 mg 10/18/17 02:21 Lopressor IVPUSH 10/18/17 02:22 ONETIME ONE Ondansetron HCl 4 mg 10/18/17 02:21 Zofran IVPUSH 10/18/17 02:22 ONETIME ONE - Radiology Interpretation Free Text/Narrative:: Chest x-ray shows interstitial thickening. CHF versus malignancy - Re-Assessments/Exams Free Text/Narrative Re-Assessment/Exam: 10/18/17 04:17 Patient afebrile, nontoxic appearing, atrial fibrillation continues at 140s. second dose of 5 mg IV metoprolol given per Dr. Sara alexander Case discussed with Dr. Sara alexander and she would like the patient admitted to telemetry and will follow Departure - Departure Time of Disposition: 04:18 Disposition: Admitted As Inpatient 65 Condition: Fair Clinical Impression: Atrial fibrillation Qualifiers: Atrial fibrillation type: paroxysmal Qualified Code(s): I48.0 - Paroxysmal atrial fibrillation Congestive heart failure (CHF) Qualifiers: Heart failure type: unspecified Heart failure chronicity: acute on chronic Qualified Code(s): I50.9 - Heart failure, unspecified Forms: ED Department Discharge - My Orders Last 24 Hours: My Active Orders 10/18/17 02:18 Cardiac Monitoring [RC] . DIRECTED CBC WITH AUTO DIFF [HEME] Stat COMPREHENSIVE METABOLIC PN,CMP [CHEM] Stat INR,PT,PROTHROMBIN TIME [COAG] Stat MAGNESIUM [CHEM] Stat TROPONIN I [CHEM] Stat Sodium Chloride 0.9% [Normal Saline] 500 ml IV .BOLUS Sodium Chloride 0.9% [Syrex Flush] 5 ml FLUSH Q8HR PRN Peripheral IV Insertion Adult [OM.PC] Stat 10/18/17 02:19 EKG Documentation Completion [RC] ASDIRECTED Peripheral IV Care [RC] . DIRECTED Chest 1V Frontal [CR] Stat EKG 12 Lead [EK] Stat - Assessment/Plan Last 24 Hours: My Active Orders 10/18/17 02:18 Cardiac Monitoring [RC] . DIRECTED CBC WITH AUTO DIFF [HEME] Stat COMPREHENSIVE METABOLIC PN,CMP [CHEM] Stat INR,PT,PROTHROMBIN TIME [COAG] Stat MAGNESIUM [CHEM] Stat TROPONIN I [CHEM] Stat Sodium Chloride 0.9% [Normal Saline] 500 ml IV .BOLUS Sodium Chloride 0.9% [Syrex Flush] 5 ml FLUSH Q8HR PRN Peripheral IV Insertion Adult [OM.PC] Stat 10/18/17 02:19 EKG Documentation Completion [RC] ASDIRECTED Peripheral IV Care [RC] . DIRECTED Chest 1V Frontal [CR] Stat EKG 12 Lead [EK] Stat Assessment:: atrial fibrillation, CHF Plan: Admit to Dr. Sara alexander
[2017-10-18 03:08] LABS: CHLORIDE,CL 104 mmol/L (98-115); SODIUM,NA 142 mmol/L (136-145)
[2017-10-18] MEDS ORDERED: Metoprolol Tartrate 5 MG/5 ML SDV ONE (04:17)
[2017-10-18] MEDS ORDERED: Diltiazem 25 MG/5 ML SDV IVPUSH ONE (07:44)
[2017-10-18] MEDS ORDERED: Furosemide 40 MG/4 ML VIAL IVPUSH ONE (11:05)
--- NOTE | 2017-10-18 11:09 | PCM.HP ---
H&P History of Present Illness - General Date of Service: 10/18/17 Admit Problem/Dx: Admission Diagnosis/Problem Admission Diagnosis/Problem Atrial fibrillation Source of Information: Family, Old Records, RN History Limitations: Reports: No Limitations - History of Present Illness Initial Comments - Free Text/Narative: 81-year-old female who was discharged from [facility] due to A. fib RVR approximate 2 months ago was admitted through the ED via EMS with a complaint of tachycardia. Patient was found per EMS with heart rate in the 140s-150s. Per family, patient developed symptoms at 2100 last evening. She complained that her heart was racing and she was little short of breath, some confusion with left arm stiffness unable to squeeze her left hand. She had no chest pain on arrival. Patient was seen by PCP October 17, 2017 and was changed from metoprolol to 80 mg propanolol for her atrial fibrillation and hypertension condition. Symptoms began same day. Yesterday during the day she felt fine and took a walk outside with family. Patient had one episode of nausea without vomiting at presentation in the emergency department. Patient denies fever, chest pain, headache, blurry vision, dizziness, abdominal pain. In speaking with her today on exam she does not remember much of the events coming into the hospital. Chest x-ray, interstitial thickening with significant interval increase suspicious for CHF/interstitial edema. Possible interstitial spread of malignancy, moderate cardiomegaly, likely will need chest CT. No consolidation Further intervention required after patient was transferred from ED to the floor to include IV cardiac medications for RVR--responded well - Related Data Allergies/Adverse Reactions: Allergies Allergy/AdvReac Type Severity Reaction Status Date / Time No Known Allergies Allergy Verified 10/18/17 02:24 Home Medications: Home Meds Latanoprost 1 drop EYEBOTH BEDTIME 07/02/17 [History] Lovastatin 40 mg PO BEDTIME 07/02/17 [History] Zolpidem Tartrate 5 mg PO BEDTIME PRN 07/02/17 [History] glipiZIDE [Glipizide Xl] 10 mg PO DAILY 07/02/17 [History] Apixaban [Eliquis] 5 mg PO BID #60 tablet 07/03/17 [Rx] Timolol Maleate [Timoptic 0.5% Ophth Soln] 1 drop EYEBOTH BID 07/17/17 [History] Levothyroxine [Synthroid] 44 mcg PO ACBREAKFAST 60 Days #30 tablet 07/20/17 [Rx] Cholecalciferol (Vitamin D3) [D3-2000] 1,000 unit PO DAILY 10/18/17 [History] Lisinopril [Prinivil] 10 mg PO DAILY 10/18/17 [History] Past Medical History HEENT History: Reports: Glaucoma, Impaired Vision Cardiovascular History: Reports: Afib, High Cholesterol, Hypertension Respiratory History: Reports: COPD Gastrointestinal History: Reports: None Genitourinary History: Reports: None Other Genitourinary History: frequency and urgency 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: , 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 (See Below) Other OB/BYN History: C Section X3 Musculoskeletal History: Reports: Osteoarthritis Neurological History: Reports: None Endocrine/Metabolic History: Reports: Diabetes, Type II, Hypothyroidism Hematologic History: Reports: Anemia Oncologic (Cancer) History: Reports: Thyroid - Past Surgical History GI Surgical History: Reports: Appendectomy, Cholecystectomy Female Surgical History: Reports: Hysterectomy Musculoskeletal Surgical History: Reports: Joint Replacement, Other (See Below) Other Musculoskeletal Surgeries/Procedures:: 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 Social & Family History - Family History HEENT: Reports: None Cardiac: Reports: None Respiratory: Reports: None GI: Reports: None : Reports: None OBGYN: Reports: None Musculoskeletal: Reports: None Neurological: Reports: None Psychiatric: Reports: None Endocrine/Metabolic: Reports: None Hematologic: Reports: None Immunologic: Reports: None Oncologic: Reports: None - Tobacco Use Smoking Status *Q: Never Smoker Second Hand Smoke Exposure: No - Caffeine Use Caffeine Use: Reports: Coffee - Recreational Drug Use Recreational Drug Use: No - Living Situation & Occupation Living situation: Reports: , Other (resides at the [facility]) H&P Review of Systems - Review of Systems: Review Of Systems: See Below Exam - Exam Exam: See Below - Vital Signs Vital Signs: Last Vital Signs Temp 99.3 F 10/18/17 07:00 Pulse 137 H 10/18/17 08:03 Resp 20 10/18/17 07:00 BP 141/97 H 10/18/17 08:03 Pulse Ox 93 L 10/18/17 07:55 Weight: 178 lb 8 oz - Patient Data Lab Results Last 24 hrs: Laboratory Results - last 24 hr 10/18/17 10/18/17 10/18/17 Range/Units 02:25 02:25 02:25 WBC 14.4 H (5.0-10.0) 10^3/uL RBC 5.46 (3.80-5.50) 10^6/uL Hgb 14.7 D (12.0-16.0) g/dL Hct 45.4 (37.0-47.0) % MCV 83.2 (82.0-92.0) fL MCH 26.9 L (27.0-31.0) pg MCHC 32.4 (32.0-36.0) g/dL RDW 15.5 H (11.5-14.5) % Plt Count 197 (150-300) 10^3/uL MPV 10.9 H (7.4-10.4) fL Neut % (Auto) 81.9 H (50.0-70.0) % Lymph % (Auto) 12.6 L (20.0-40.0) % Sharkey % (Auto) 4.0 (2.0-8.0) % Eos % (Auto) 1.5 (1.0-3.0) % Baso % (Auto) 0.0 (0.0-1.0) % Neut # (Auto) 11.8 H (2.5-7.0) 10^3/uL Lymph # (Auto) 1.8 (1.0-4.0) 10^3/uL Sharkey # (Auto) 0.6 (0.1-0.8) 10^3/uL Eos # (Auto) 0.2 (0.1-0.3) 10^3/uL Baso # (Auto) 0.0 (0.0-0.1) 10^3/uL PT 10.4 (8.9-11.4) SEC INR 1.0 (0.9-1.1) Sodium 142 (136-145) mmol/L Potassium 4.2 (3.3-5.3) mmol/L Chloride 104 (98-115) mmol/L Carbon Dioxide 28.6 (21.0-32.0) mmol/L BUN 19 (6-25) mg/dL Creatinine 0.89 (0.51-1.17) mg/dL Est Cr Clr Drug Dosing 45.62 mL/min Estimated GFR (MDRD) > 60 mL/min Glucose 202 H (70-110) mg/dL POC Glucose (74-106) mg/dl Calcium 8.2 L (8.7-10.3) mg/dL Magnesium 2.1 (1.8-2.4) mg/dL Total Bilirubin 0.5 (0.2-1.0) mg/dL AST 17 (15-37) U/L ALT 17 (12-78) U/L Alkaline Phosphatase 109 (46-116) IU/L Troponin I < 0.04 (0.00-0.070) ng/mL B-Natriuretic Peptide (0-100) pg/mL Total Protein 7.3 (6.4-8.2) g/dL Albumin 3.77 (3.00-4.80) g/dL Specimen Type Urine Color (YELLOW) Urine Appearance (CLEAR) Urine pH (5.0-9.0) Ur Specific [place] (1.005-1.030) Urine Protein (NEGATIVE) mg/dL Urine Glucose (UA) (NEGATIVE) mg/dL Urine Ketones (NEGATIVE) mg/dL Urine Occult Blood (NEGATIVE) Urine Nitrite (NEGATIVE) Urine Bilirubin (NEGATIVE) Urine Urobilinogen (0.2-1.0) E.U./dL Ur Leukocyte Esterase (NEGATIVE) Urine RBC /HPF Urine WBC /HPF Ur Epithelial Cells /LPF Urine Bacteria (NONE TO FEW) /HPF 10/18/17 10/18/17 10/18/17 Range/Units 02:25 03:22 07:54 WBC (5.0-10.0) 10^3/uL RBC (3.80-5.50) 10^6/uL Hgb (12.0-16.0) g/dL Hct (37.0-47.0) % MCV (82.0-92.0) fL MCH (27.0-31.0) pg MCHC (32.0-36.0) g/dL RDW (11.5-14.5) % Plt Count (150-300) 10^3/uL MPV (7.4-10.4) fL Neut % (Auto) (50.0-70.0) % Lymph % (Auto) (20.0-40.0) % Sharkey % (Auto) (2.0-8.0) % Eos % (Auto) (1.0-3.0) % Baso % (Auto) (0.0-1.0) % Neut # (Auto) (2.5-7.0) 10^3/uL Lymph # (Auto) (1.0-4.0) 10^3/uL Sharkey # (Auto) (0.1-0.8) 10^3/uL Eos # (Auto) (0.1-0.3) 10^3/uL Baso # (Auto) (0.0-0.1) 10^3/uL PT (8.9-11.4) SEC INR (0.9-1.1) Sodium (136-145) mmol/L Potassium (3.3-5.3) mmol/L Chloride (98-115) mmol/L Carbon Dioxide (21.0-32.0) mmol/L BUN (6-25) mg/dL Creatinine (0.51-1.17) mg/dL Est Cr Clr Drug Dosing mL/min Estimated GFR (MDRD) mL/min Glucose (70-110) mg/dL POC Glucose 144 H (74-106) mg/dl Calcium (8.7-10.3) mg/dL Magnesium (1.8-2.4) mg/dL Total Bilirubin (0.2-1.0) mg/dL AST (15-37) U/L ALT (12-78) U/L Alkaline Phosphatase (46-116) IU/L Troponin I (0.00-0.070) ng/mL B-Natriuretic Peptide 557 H (0-100) pg/mL Total Protein (6.4-8.2) g/dL Albumin (3.00-4.80) g/dL Specimen Type Urincc Urine Color Light yellow (YELLOW) Urine Appearance Clear (CLEAR) Urine pH 7.5 (5.0-9.0) Ur Specific Sheffield 1.020 (1.005-1.030) Urine Protein Trace H (NEGATIVE) mg/dL Urine Glucose (UA) 100 H (NEGATIVE) mg/dL Urine Ketones Negative (NEGATIVE) mg/dL Urine Occult Blood Negative (NEGATIVE) Urine Nitrite Negative (NEGATIVE) Urine Bilirubin Negative (NEGATIVE) Urine Urobilinogen 0.2 (0.2-1.0) E.U./dL Ur Leukocyte Esterase Negative (NEGATIVE) Urine RBC Not seen /HPF Urine WBC 0-5 /HPF Ur Epithelial Cells Occasional /LPF Urine Bacteria Rare (NONE TO FEW) /HPF Result Diagrams: 10/19/17 07:05 10/19/17 07:05 Problem List Initiated/Reviewed/Updated: Yes Orders Last 24hrs: Active Orders 24 hr Category Date Time Status Patient Status [ADT] Routine ADT 10/18/17 04:20 Ordered Bedrest Bedside Commode [RC] DAILY Care 10/18/17 04:20 Active Blood Glucose Check, Bedside [RC] 0730 Care 10/18/17 07:56 Active Cardiac Monitoring [RC] 0300,0700,1100,1500,1900,2300 Care 10/18/17 02:18 Active Oxygen Therapy [RC] .PRN Care 10/18/17 04:20 Active Peripheral IV Care [RC] . DIRECTED Care 10/18/17 02:19 Active Vital Signs [RC] 0300,0700,1100,1500,1900,2300 Care 10/18/17 04:20 Active ADA Diabetic [[place] [employer] Diet] [DIET Diet 10/18/17 Breakfast Active ] URINALYSIS W/MICROSCOPIC [UA W/MICROSCOPIC] [URIN] Stat Lab 10/18/17 03:22 Ordered Sodium Chloride 0.9% [Syrex Flush] Med 10/18/17 02:18 Active 5 ml FLUSH Q8HR PRN Peripheral IV Insertion Adult [OM.PC] Stat Oth 10/18/17 02:18 Ordered Resuscitation Status Routine Resus Stat 10/18/17 04:20 Ordered EKG 12 Lead [EK] Stat Ther 10/18/17 02:19 Ordered Medication Orders Sodium Chloride (Syrex Flush) 5 ml FLUSH Q8HR PRN PRN Reason: Keep Vein Open Assessment/Plan Comment:: HISTORY OF PRESENT ILLNESS 81-year-old female who was discharged from [facility] due to A. fib RVR approximate 2 months ago was admitted through the ED via EMS with a complaint of tachycardia. Patient was found per EMS with heart rate in the 140s-150s. Per family, patient developed symptoms at 2100 last evening. She complained that her heart was racing and she was little short of breath, some confusion with left arm stiffness unable to squeeze her left hand. She had no chest pain on arrival. Patient was seen recently by PCP and due to some lip tremors her metoprolol was changed to 80 mg propanolol, however patient admitted not switching from metoprolol to propanolol until about 48 hours ago. Symptoms began same day. Yesterday during the day she felt fine and took a walk outside with family. Patient had one episode of nausea without vomiting at presentation in the emergency department. Patient denies fever, chest pain, headache, blurry vision, dizziness, abdominal pain. In speaking with her today on exam she does not remember much of the events coming into the hospital. Chest x-ray, interstitial thickening with significant interval increase suspicious for CHF/interstitial edema. Possible interstitial spread of malignancy, moderate cardiomegaly, likely will need chest CT. No consolidation Further intervention required after patient was transferred from ED to the floor to include IV cardiac medications for RVR--responded well Primary problem Atrial fibrillation, acute on chronic, CVR now with IV Cardizem this morning.[id number] high, rate control strategy, discontinue propanolol, place on metoprolol tartrate 50 twice a day, continue with factor X a inhibitor. Currently on beta lazaro eyedrops, consult with pharmacy to educate patient proper administration in her eyes to prevent ductal absorption HFrEF, BNP elevated 557, are normal baseline weight 182, 178 today. Daily weights, I&O, Echocardiogram, EF 50%, markedly dilated left atrium, right atrium , diuretic today Neutrophilia, uncertain etiology, will monitor Chronic problems Iatrogenic hyperthyroidism, on replacement therapy HTN, ETTA inhibitor, HLD, statin T2DM, glipizide
[2017-10-18] MEDS: Metoprolol Tartrate 50 MG Tab PO SCH ×2 (12:04→20:04)
[2017-10-18] MEDS: Latanoprost 0.005% Ophth Soln 2.5 ML Bottle EYEBOTH SCH (20:03)
[2017-10-18] MEDS: Apixaban 5 MG Tab PO SCH (20:04)
[2017-10-18] MEDS: Timolol Maleate 0.5% Ophth Soln 5 ML Bottle EYEBOTH SCH (20:05)
[2017-10-18] MEDS: Simvastatin 20 MG Tab PO SCH (20:41)
[2017-10-18] MEDS: Zolpidem 5 MG Tab PO PRN (20:41)
[2017-10-19] MEDS: Levothyroxine 88 MCG Tab PO SCH (08:11)
[2017-10-19] MEDS: Lisinopril 10 MG Tab PO SCH (08:12)
[2017-10-19] MEDS: Metoprolol Tartrate 50 MG Tab PO SCH ×2 (08:12→20:42)
[2017-10-19] MEDS: Apixaban 5 MG Tab PO SCH ×2 (08:12→20:42)
[2017-10-19] MEDS: Cholecalciferol (Vitamin D3) 1,000 Unit Tab PO SCH (08:13)
[2017-10-19] MEDS ORDERED: Metoprolol Tartrate 25 MG Tab PO SCH (09:30)
[2017-10-19] MEDS: Timolol Maleate 0.5% Ophth Soln 5 ML Bottle EYEBOTH SCH ×2 (09:38→20:45)
--- NOTE | 2017-10-19 10:07 | PCM.PN ---
- General Info Date of Service: 10/19/17 Functional Status: Reports: Pain Controlled, Tolerating Diet. Denies: Ambulating, New Symptoms - Review of Systems General: Reports: No Symptoms HEENT: Reports: No Symptoms Pulmonary: Reports: No Symptoms Cardiovascular: Denies: Chest Pain, Palpitations, Dyspnea on Exertion, Lightheadedness Gastrointestinal: Reports: No Symptoms Genitourinary: Reports: No Symptoms Musculoskeletal: Reports: No Symptoms Skin: Reports: No Symptoms Neurological: Reports: Other (Fine lower lip tremor) Psychiatric: Reports: No Symptoms - Patient Data Vitals - Most Recent: Last Vital Signs Temp 99.5 F 10/19/17 06:34 Pulse 102 H 10/19/17 09:48 Resp 22 H 10/19/17 06:34 BP 156/95 H 10/19/17 09:48 Pulse Ox 99 10/19/17 08:00 Weight - Most Recent: 178 lb 8 oz I&O - Last 24 Hours: Intake & Output 10/18/17 10/19/17 10/19/17 22:59 06:59 14:59 Intake Total 275 0 Balance 275 0 Lab Results Last 24 Hours: Laboratory Results - last 24 hr 10/19/17 10/19/17 10/19/17 Range/Units 06:28 07:05 07:05 WBC 8.0 (5.0-10.0) 10^3/uL RBC 4.73 (3.80-5.50) 10^6/uL Hgb 12.2 D (12.0-16.0) g/dL Hct 38.8 (37.0-47.0) % MCV 82.0 (82.0-92.0) fL MCH 25.7 L (27.0-31.0) pg MCHC 31.4 L (32.0-36.0) g/dL RDW 14.9 H (11.5-14.5) % Plt Count 154 (150-300) 10^3/uL MPV 10.7 H (7.4-10.4) fL Neut % (Auto) 76.0 H (50.0-70.0) % Lymph % (Auto) 15.6 L (20.0-40.0) % Mcnairy % (Auto) 7.6 (2.0-8.0) % Eos % (Auto) 0.7 L (1.0-3.0) % Baso % (Auto) 0.1 (0.0-1.0) % Neut # (Auto) 6.1 (2.5-7.0) 10^3/uL Lymph # (Auto) 1.2 (1.0-4.0) 10^3/uL [place] # (Auto) 0.6 (0.1-0.8) 10^3/uL Eos # (Auto) 0.1 (0.1-0.3) 10^3/uL Baso # (Auto) 0.0 (0.0-0.1) 10^3/uL Sodium 144 (136-145) mmol/L Potassium 4.0 (3.3-5.3) mmol/L Chloride 104 (98-115) mmol/L Carbon Dioxide 31.6 (21.0-32.0) mmol/L BUN 17 (6-25) mg/dL Creatinine 0.91 (0.51-1.17) mg/dL Est Cr Clr Drug Dosing 44.62 mL/min Estimated GFR (MDRD) 59 mL/min Glucose 143 H (70-110) mg/dL POC Glucose 144 H (74-106) mg/dl Calcium 7.5 L (8.7-10.3) mg/dL Med Orders - Current: Current Medications Apixaban (Eliquis) 5 mg PO BID [facility] [place] Last Admin: 10/19/17 08:12 Dose: 5 mg Cholecalciferol (Vitamin D3) 1,000 units PO DAILY [facility] Last Admin: 10/19/17 08:13 Dose: 1,000 units Latanoprost (Xalatan 0.005% [facility] Soln) 0 ml EYEBOTH BEDTIME [facility] Last Admin: 10/18/17 20:03 Dose: 1 drop Levothyroxine Sodium (Synthroid) 44 mcg PO ACBREAKFAST [facility] [place] Last Admin: 10/19/17 08:11 Dose: 44 mcg Lisinopril (Prinivil) 10 mg PO DAILY [facility] [place] Last Admin: 10/19/17 08:12 Dose: 10 mg Metoprolol Tartrate (Lopressor) 25 mg PO ONETIME [facility] [place] Last Admin: 10/19/17 09:48 Dose: 25 mg Metoprolol Tartrate (Lopressor) 75 mg PO BID [facility] [place] Simvastatin (Zocor) 20 mg PO BEDTIME [facility] Last Admin: 10/18/17 20:41 Dose: 20 mg Sodium Chloride (Syrex Flush) 5 ml FLUSH Q8HR PRN PRN Reason: Keep Vein Open Timolol Maleate (Timoptic 0.5% Ophth Soln) 0 ml EYEBOTH BID [facility] [place] Last Admin: 10/19/17 09:38 Dose: 1 drop Zolpidem Tartrate (Ambien) 5 mg PO BEDTIME PRN PRN Reason: Insomnia Last Admin: 10/18/17 20:41 Dose: 5 mg Discontinued Medications Diltiazem HCl (Diltiazem) 20 mg IVPUSH ONETIME ONE Stop: 10/18/17 07:45 Last Admin: 10/18/17 08:03 Dose: 20 mg Furosemide (Lasix) 40 mg IVPUSH NOW ONE Stop: 10/18/17 11:06 Last Admin: 10/18/17 12:05 Dose: 40 mg Sodium Chloride (Normal Saline) 500 mls @ 1,000 mls/hr IV .BOLUS ONE Stop: 10/18/17 02:47 Last Admin: 10/18/17 03:05 Dose: Not Given Metoprolol Tartrate (Lopressor) 5 mg IVPUSH ONETIME ONE Stop: 10/18/17 02:22 Last Admin: 10/18/17 02:45 Dose: 5 mg Metoprolol Tartrate (Lopressor) 5 mg IVPUSH ONETIME ONE Stop: 10/18/17 04:16 Last Admin: 10/18/17 04:20 Dose: 5 mg Metoprolol Tartrate (Lopressor) Confirm Administered Dose 5 mg .ROUTE .STK-MED ONE Stop: 10/18/17 04:18 Last Admin: 10/18/17 04:23 Dose: Not Given Metoprolol Tartrate (Lopressor) 50 mg PO BID [facility] [place] Last Admin: 10/19/17 08:12 Dose: 50 mg Ondansetron HCl (Zofran) 4 mg IVPUSH ONETIME ONE Stop: 10/18/17 02:22 Last Admin: 10/18/17 02:30 Dose: 4 mg - Exam Quality Assessment: No: Supplemental Oxygen General: Alert, Oriented, Cooperative, No Acute Distress Neck: Supple Lungs: Clear to Auscultation, Normal Respiratory Effort Cardiovascular: Irregular Rhythm, Tachycardia (Tachycardia improved) GI/Abdominal Exam: Soft (Female) Exam: Deferred Back Exam: No: CVA Tenderness (R) Extremities: No Pedal Edema Skin: Warm, Dry, Intact Neurological: No New Focal Deficit - Problem List Review Problem List Initiated/Reviewed/Updated: Yes - My Orders Last 24 Hours: My Active Orders 10/18/17 11:00 Zolpidem [Ambien] 5 mg PO BEDTIME PRN 10/18/17 21:00 Apixaban [Eliquis] 5 mg PO BID Latanoprost [Xalatan 0.005% Ophth Soln] 0 ml EYEBOTH BEDTIME Simvastatin [Zocor] 20 mg PO BEDTIME Timolol Maleate [Timoptic 0.5% Ophth Soln] 0 ml EYEBOTH BID 10/19/17 07:30 Levothyroxine [Synthroid] 44 mcg PO ACBREAKFAST 10/19/17 09:00 Cholecalciferol (Vitamin D3) [Vitamin D3] 1,000 units PO DAILY Lisinopril [Prinivil] 10 mg PO DAILY 10/19/17 09:30 Metoprolol Tartrate [Lopressor] 25 mg PO ONETIME 10/19/17 21:00 Metoprolol Tartrate [Lopressor] 75 mg PO BID - Plan Plan:: HISTORY OF PRESENT ILLNESS 81-year-old female who was discharged from [facility] due to A. fib RVR approximate 2 months ago was admitted through the ED via EMS with a complaint of tachycardia. Patient was found per EMS with heart rate in the 140s-150s. Per family, patient developed symptoms at 2100 last evening. She complained that her heart was racing and she was little short of breath, some confusion with left arm stiffness unable to squeeze her left hand. She had no chest pain on arrival. Patient was seen recently by PCP and due to some lip tremors her metoprolol was changed to 80 mg propanolol, however patient admitted not switching from metoprolol to propanolol until about 48 hours ago. Symptoms began same day. Yesterday during the day she felt fine and took a walk outside with family. Patient had one episode of nausea without vomiting at presentation in the emergency department. Patient denies fever, chest pain, headache, blurry vision, dizziness, abdominal pain. In speaking with her today on exam she does not remember much of the events coming into the hospital. Chest x-ray, interstitial thickening with significant interval increase suspicious for CHF/interstitial edema. Possible interstitial spread of malignancy, moderate cardiomegaly, likely will need chest CT. No consolidation Update today, improved heart rate yet not optimal, no chest pain, no confusion, feels much better today, not ambulated. Reviewed overnight telemetry: A. fib with HR 90-110--improvement. Primary problem Atrial fibrillation, acute on chronic, some improvement with rate however not optimal. [id number] high, rate control strategy, discontinued propanolol, placed on metoprolol tartrate 50 twice a day yesterday--increase his 75 twice a day. Continue with factor Xa inhibitor. Currently on beta lazaro eyedrops, consult with pharmacy to educate patient proper administration in her eyes to prevent ductal absorption HFrEF, BNP elevated 557 on admission however lungs are clear and she has no pedal edema. Negative JVD. baseline weight 182, 178 today. Daily weights, I&O, Echocardiogram, EF 50%, markedly dilated left atrium, right atrium, diuretic today Neutrophilia on admission uncertain etiology, now normalized. No antibiotics needed. Hypocalcemia, pseudo Chronic problems Iatrogenic hyperthyroidism, on replacement therapy. Assess TSH level today HTN, ETTA inhibitor, increased beta lazaro for better rate control HLD, statin T2DM, glipizide, high risk medication. Overall plan/disposition, increase beta lazaro to 75 mg twice a day, ambulate floor today to assess AV jimenez response. He maintained in telemetry status. TSH level today however no a.m. labs required. Likely will anticipate discharge in a.m.
[2017-10-19] MEDS ORDERED: Atropine 0.1 MG/ML 10 ML Syringe IVPUSH PRN (11:29)
[2017-10-19] MEDS ORDERED: Nitroglycerin 0.4 MG Tab.SL SL PRN (11:29)
[2017-10-19] MEDS ORDERED: Lidocaine 2% 100 MG/5 ML Syringe IVPUSH PRN (11:29)
[2017-10-19] MEDS ORDERED: EPINEPHrine 1:10,000 1 MG/10 ML Syringe IVPUSH PRN (11:29)
[2017-10-19] MEDS: Simvastatin 20 MG Tab PO SCH (20:45)
[2017-10-19] MEDS: Latanoprost 0.005% Ophth Soln 2.5 ML Bottle EYEBOTH SCH (20:45)
[2017-10-19] MEDS: Zolpidem 5 MG Tab PO PRN (20:47)
[2017-10-20] MEDS: Levothyroxine 88 MCG Tab PO SCH (07:55)
[2017-10-20] MEDS: Apixaban 5 MG Tab PO SCH (09:17)
[2017-10-20] MEDS: Lisinopril 10 MG Tab PO SCH (09:20)
[2017-10-20] MEDS: Metoprolol Tartrate 50 MG Tab PO SCH (09:21)
[2017-10-20] MEDS: Cholecalciferol (Vitamin D3) 1,000 Unit Tab PO SCH (09:21)
[2017-10-20] MEDS: Timolol Maleate 0.5% Ophth Soln 5 ML Bottle EYEBOTH SCH (09:24)
--- NOTE | 2017-10-20 10:33 | PCM.DCSUM1 ---
Discharge Summary - Hospital Course Free Text/Narrative:: This 81-year-old female patient was admitted to the hospital on 10/18/17 from the emergency room because of acute exacerbation of chronic atrial fibrillation 2 evidence rapid rate. She was diagnosed as having atrial fibrillation approximately 2 months ago. When she was admitted to the emergency room heart rate was in 140 to 150s. The patient's complaints started in the evening and got worse by tube teller. She also complained of confusion, left arm stiffness and inability to squeeze with her left hand. She had no chest pain on arrival. She was initially taking metoprolol and this was changed to propranolol 80 mg because of some quivering of her lips and possible tremors. On examination she was felt to be in acute rapid atrial fibrillation. She was admitted to the hospital after being treated with IV Cardizem in the emergency room. Laboratory data: Her hemoglobin was normal at 12.2 white count is normal. Serum electrolytes are normal. BUN/creatinine normal. Her serum albumin was 3.77. Her calcium was low at 7.5. TSH was normal. Urinalysis was normal. Chest x-ray showed increased interstitial markings suggestive of edema, question of congestive heart failure. Hospital course and treatment: The patient was admitted to the hospital and in the emergency room was given IV Cardizem. This slowed her heart rate. Her Inderal was discontinued and she was started back on metoprolol at 75 mg twice a day. She was continued on levothyroxine 44 g daily, vitamin D3, Zocor, timolol eyedrops and zolpidem. Her clinical condition improved quite satisfactorily and her heart rate came down to within normal limits. Her echocardiogram showed her ejection fraction to be 50% and with a markedly dilated left atrium, right atrium. Her BU and was elevated to 557. She was treated with diuretics also. She reached her dry weight of 178 pounds at the time of discharge. Today on 20 October, her clinical condition is improved quite well. She remained chest pain-free and was able to ablate without difficulty or dyspnea. She is being discharged with the following medications. At request 5 mg twice a day, vitamin D 3000 units daily, Xalatan eyedrops as prescribed by her legal billing specialist, Synthroid 44 g daily, Lisinopril 10 mg daily , Metoprolol 75 mg twice a day, Zocor 20 mg daily, and zolpidem 5 mg at bedtime on a when necessary basis. She'll be continued on home medication glipizide XL 10 mg daily. She is advised to come back for follow-up next week at the clinic in [place]. - Discharge Data Discharge Date: 10/20/17 Discharge Disposition: Home, Self-Care 01 Condition: Good - Patient Instructions Diet: Heart Healthy Diet Activity: No Strenuous Activities Driving: Do Not Drive Other/Special Instructions: Please notify M.D. or clinic if she develops any increased dyspnea, chest pain or rapid heart rate. - Discharge Plan Home Medications: Home Meds Latanoprost 1 drop EYEBOTH BEDTIME 07/02/17 [History] Lovastatin 40 mg PO BEDTIME 07/02/17 [History] Zolpidem Tartrate 5 mg PO BEDTIME PRN 07/02/17 [History] glipiZIDE [Glipizide Xl] 10 mg PO DAILY 07/02/17 [History] Apixaban [Eliquis] 5 mg PO BID #60 tablet 07/03/17 [Rx] Timolol Maleate [Timoptic 0.5% Ophth Soln] 1 drop EYEBOTH BID 07/17/17 [History] Levothyroxine [Synthroid] 44 mcg PO ACBREAKFAST 60 Days #30 tablet 07/20/17 [Rx] Cholecalciferol (Vitamin D3) [D3-2000] 1,000 unit PO DAILY 10/18/17 [History] Lisinopril [Prinivil] 10 mg PO DAILY 10/18/17 [History] Forms: ED Department Discharge Referrals: Shelbi Fernandez MD [Primary Care Provider] - - Discharge Summary/Plan Comment DC Time >30 min.: Yes - Patient Data Vitals - Most Recent: Last Vital Signs Temp 97.2 F 10/20/17 07:00 Pulse 92 10/20/17 09:21 Resp 16 10/20/17 07:00 BP 143/76 H 10/20/17 09:21 Pulse Ox 94 L 10/20/17 08:00 Weight - Most Recent: 178 lb 8 oz I&O - Last 24 hours: Intake & Output 10/19/17 10/20/17 10/20/17 22:59 06:59 14:59 Intake Total 300 100 Balance 300 100 Lab Results - Last 24 hrs: Laboratory Results - last 24 hr 10/19/17 10/20/17 Range/Units 07:20 06:51 POC Glucose 107 H (74-106) mg/dl TSH, Ultra Sensitive 1.970 (0.340-4.820) uIU/mL Med Orders - Current: Current Medications Apixaban (Eliquis) 5 mg PO BID [facility] Last Admin: 10/20/17 09:17 Dose: 5 mg Atropine Sulfate (Atropine 0.1 Mg/Ml) 0 mg IVPUSH ASDIRECTED PRN PRN Reason: Heart Cholecalciferol (Vitamin D3) 1,000 units PO DAILY [facility] Last Admin: 10/20/17 09:21 Dose: 1,000 units Epinephrine HCl (Epinephrine 1:10,000) 1 mg IVPUSH ASDIRECTED PRN PRN Reason: Heart Latanoprost (Xalatan 0.005% Ophth Soln) 0 ml EYEBOTH BEDTIME [facility] Last Admin: 10/19/17 20:45 Dose: 1 drop Levothyroxine Sodium (Synthroid) 44 mcg PO ACBREAKFAST [facility] Last Admin: 10/20/17 07:55 Dose: 44 mcg Lidocaine HCl (Xylocaine 2%) 0 mg IVPUSH ASDIRECTED PRN PRN Reason: Heart Lisinopril (Prinivil) 10 mg PO DAILY [facility] Last Admin: 10/20/17 09:20 Dose: 10 mg Metoprolol Tartrate (Lopressor) 75 mg PO BID [facility] Last Admin: 10/20/17 09:21 Dose: 75 mg Nitroglycerin (Nitrostat) 0.4 mg SL ASDIRECTED PRN PRN Reason: Heart Simvastatin (Zocor) 20 mg PO BEDTIME [facility] Last Admin: 10/19/17 20:45 Dose: 20 mg Sodium Chloride (Syrex Flush) 5 ml FLUSH Q8HR PRN PRN Reason: Keep Vein Open Timolol Maleate (Timoptic 0.5% Ophth Soln) 0 ml EYEBOTH BID [facility] Last Admin: 10/20/17 09:24 Dose: 1 drop Zolpidem Tartrate (Ambien) 5 mg PO BEDTIME PRN PRN Reason: Insomnia Last Admin: 10/19/17 20:47 Dose: 5 mg Discontinued Medications Diltiazem HCl (Diltiazem) 20 mg IVPUSH ONETIME ONE Stop: 10/18/17 07:45 Last Admin: 10/18/17 08:03 Dose: 20 mg Furosemide (Lasix) 40 mg IVPUSH NOW ONE Stop: 10/18/17 11:06 Last Admin: 10/18/17 12:05 Dose: 40 mg Sodium Chloride (Normal Saline) 500 mls @ 1,000 mls/hr IV .BOLUS ONE Stop: 10/18/17 02:47 Last Admin: 10/18/17 03:05 Dose: Not Given Metoprolol Tartrate (Lopressor) 5 mg IVPUSH ONETIME ONE Stop: 10/18/17 02:22 Last Admin: 10/18/17 02:45 Dose: 5 mg Metoprolol Tartrate (Lopressor) 5 mg IVPUSH ONETIME ONE Stop: 10/18/17 04:16 Last Admin: 10/18/17 04:20 Dose: 5 mg Metoprolol Tartrate (Lopressor) Confirm Administered Dose 5 mg .ROUTE .STK-MED ONE Stop: 10/18/17 04:18 Last Admin: 10/18/17 04:23 Dose: Not Given Metoprolol Tartrate (Lopressor) 50 mg PO BID [facility] Last Admin: 10/19/17 08:12 Dose: 50 mg Metoprolol Tartrate (Lopressor) 25 mg PO ONETIME [facility] Last Admin: 10/19/17 09:48 Dose: 25 mg Ondansetron HCl (Zofran) 4 mg IVPUSH ONETIME ONE Stop: 10/18/17 02:22 Last Admin: 10/18/17 02:30 Dose: 4 mg
== END 2017-10-20 11:30 | disposition home or self-care (01) | DRG 309 ==
LOC: KA.ED 01:40 → KA.MS 04:30
PROVIDERS: ADMIT Family Medicine; ATTEND Family Medicine
DX: I48.2 Chronic atrial fibrillation (principal); I50.20 Unspecified systolic (congestive) heart failure; I10 Essential (primary) hypertension; E78.5 Hyperlipidemia, unspecified; J44.9 Chronic obstructive pulmonary disease, unspecified; E11.9 Type 2 diabetes mellitus without complications; E03.9 Hypothyroidism, unspecified; D72.0 Genetic anomalies of leukocytes; E83.51 Hypocalcemia; Z79.899 Other long term (current) drug therapy
CPT/HCPCS: 36415; 71045; 80048; 80053; 81001; 82962; 83735; 83880; 84443; 84484; 85025; 85610; 93005; 96374; 96375; 96376; 99285; A9270-GY; J1940; J2405; J3490

== ENCOUNTER 2023-05-17 15:27 | Inpatient (IN) | payer MEDICARE, MEDICAID ==
[2023-05-17] MEDS ORDERED: Sodium Chloride 0.9% 10 ML Syringe FLUSH PRN ×2 (15:38→17:28)
[2023-05-17] MEDS ORDERED: Diltiazem 25 MG/5 ML SDV IVPUSH ONE ×3 (15:46→17:44)
[2023-05-17 15:47] LABS: BASOPHILS ABSOLUTE AUTO 0.04 10^3/uL (0.00-0.10); BASOPHILS PERCENT AUTO 0.3 % (0.0-1.0); EOSINOPHILS PERCENT AUTO 0.9 % (1.0-3.0); HEMATOCRIT 44.7 % (37.0-47.0); HEMOGLOBIN 14.3 g/dL (12.0-16.0); IMMATURE GRAN ABSOLUTE AUTO 0.02 10^3/uL (0.00-0.50); IMMATURE GRAN PERCENT AUTO 0.2 % (0.0-5.0); LYMPHOCYTES ABSOLUTE AUTO 1.99 10^3/uL (1.00-4.00); LYMPHOCYTES PERCENT AUTO 17.2 % (20.0-40.0); MEAN CORPUSCULAR HEMOGLOBIN 28.7 pg (27.0-31.0); MEAN CORPUSCULAR VOLUME 89.8 fL (82.0-92.0); MEAN PLATELET VOLUME 12.2 fL (7.4-10.4); MONOCYTES ABSOLUTE AUTO 0.82 10^3/uL (0.10-0.80); MONOCYTES PERCENT AUTO 7.1 % (2.0-8.0); NEUTROPHILS ABSOLUTE AUTO 8.59 10^3/uL (2.50-7.00); NEUTROPHILS PERCENT AUTO 74.3 % (50.0-70.0); PLATELET COUNT,PLT 250 10^3/uL (150-400); RED BLOOD CELL COUNT 4.98 10^6/uL (3.80-5.50); RED CELL DISTRIBUTION WIDTH 13.3 % (11.5-14.5); WHITE BLOOD CELL COUNT,WBC 11.56 10^3/uL (5.00-10.00)
[2023-05-17 16:22] LABS: ALBUMIN 3.22 g/dL (3.40-5.00); ANION GAP 17.5 mmol/L (5-15); BILIRUBIN TOTAL 1.3 mg/dL (0.2-1.0); CALCIUM 8.2 mg/dL (8.7-10.3); CARBON DIOXIDE,CO2 26.1 mmol/L (21.0-32.0); CREATININE 1.01 mg/dL (0.51-1.17); EST CRCL DRUG DOSING (CG) 36.04 mL/min; POTASSIUM,K 3.6 mmol/L (3.5-5.1); PROTEIN TOTAL,TP 6.5 g/dL (6.4-8.2)
[2023-05-17] MEDS: Diltiazem 125 MG in Sodium Chloride 0.9% 100 ML IV SCH (16:22)
[2023-05-17] MEDS ORDERED: Zolpidem 5 MG Tab PO PRN (17:20)
[2023-05-17] MEDS ORDERED: Potassium Chloride 20 MEQ Tab.ER PO ONE (17:27)
[2023-05-17] MEDS ORDERED: Docusate Sodium 100 MG Cap PO PRN (17:28)
[2023-05-17] MEDS ORDERED: Polyethylene Glycol 3350 Powder 17 GM Packet PO PRN (17:28)
[2023-05-17] MEDS ORDERED: oxyCODONE 5 MG Tab PO PRN (17:28)
[2023-05-17] MEDS ORDERED: Acetaminophen 325 MG Tab PO PRN (17:28)
[2023-05-17] MEDS ORDERED: Ondansetron 4 MG/2 ML SDV IV PRN (17:28)
[2023-05-17] MEDS ORDERED: Albuterol 0.083% 2.5 MG/3 ML Neb Soln NEB PRN (17:28)
[2023-05-17] MEDS ORDERED: 50% Dextrose in Water 50 ML Syringe IVPUSH PRN (17:35)
[2023-05-17] MEDS ORDERED: Glucagon,Human Recombinant 1 MG Vial IM PRN (17:35)
[2023-05-17] MEDS: Insulin Lispro 100 Unit/ML 3 ML KwikPen SUBCUT SCH (17:49)
[2023-05-17 17:56] LABS: HEMOGLOBIN A1C 6.7 % (4.3-5.7); MAGNESIUM 2.1 mg/dL (1.8-2.4); TSH ULTRASENSITIVE 4.109 uIU/mL (0.340-4.820)
[2023-05-17] MEDS ORDERED: cefTRIAXone 1 GM Vial IVPUSH SCH (18:00)
[2023-05-17] MEDS: Furosemide 40 MG/4 ML VIAL IVPUSH SCH (18:33)
[2023-05-17 18:55] LABS: APPEARANCE,URINE SLIGHTLY CLOUDY (CLEAR); BILIRUBIN,URINE NEGATIVE (NEGATIVE); COLOR,URINE YELLOW (YELLOW); GLUCOSE,URINE NEGATIVE (NEGATIVE); KETONES,URINE NEGATIVE (NEGATIVE); LEUKOCYTE ESTERASE,URINE SMALL (NEGATIVE); NITRITE,URINE NEGATIVE (NEGATIVE); OCCULT BLOOD,URINE MODERATE (NEGATIVE); PROTEIN,URINE NEGATIVE (NEGATIVE); UROBILINOGEN,URINE 0.2 E.U./dL (0.2-1.0)
[2023-05-17 19:07] LABS: BACTERIA,URINE RARE /HPF (NONE TO FEW); EPITHELIAL CELLS,URINE RARE /LPF; RBC,URINE 50-75 /HPF (0-5)
[2023-05-17] MEDS: Timolol Maleate 0.5% Ophth Soln 5 ML Bottle EYEBOTH SCH (20:34)
[2023-05-17] MEDS: Apixaban 5 MG Tab PO SCH (20:35)
[2023-05-17] MEDS: Calcium Carbonate 500 MG Tab.Chew PO SCH (20:35)
[2023-05-17] MEDS: guaiFENesin 600 MG Tab.ER PO SCH (20:35)
[2023-05-17] MEDS: Losartan 50 MG Tab PO SCH (20:37)
[2023-05-17] MEDS ORDERED: Non-Formulary Medication 1 Each (Lovastatin [Lovastatin] 40 MG Tablet) PO SCH (21:00)
[2023-05-17] MEDS ORDERED: Latanoprost 0.005% Ophth Soln 2.5 ML Bottle EYEBOTH SCH (21:00)
[2023-05-17] MEDS ORDERED: Melatonin 3 MG Tab PO SCH (21:00)
[2023-05-18] MEDS: Diltiazem 125 MG in Sodium Chloride 0.9% 100 ML IV SCH ×2 (05:18→15:36)
[2023-05-18 07:12] LABS: BASOPHILS ABSOLUTE AUTO 0.03 10^3/uL (0.00-0.10); BASOPHILS PERCENT AUTO 0.3 % (0.0-1.0); EOSINOPHILS ABSOLUTE AUTO 0.22 10^3/uL (0.10-0.30); EOSINOPHILS PERCENT AUTO 2.5 % (1.0-3.0); HEMATOCRIT 36.3 % (37.0-47.0); HEMOGLOBIN 11.5 g/dL (12.0-16.0); IMMATURE GRAN ABSOLUTE AUTO 0.01 10^3/uL (0.00-0.50); IMMATURE GRAN PERCENT AUTO 0.1 % (0.0-5.0); LYMPHOCYTES ABSOLUTE AUTO 1.46 10^3/uL (1.00-4.00); LYMPHOCYTES PERCENT AUTO 16.4 % (20.0-40.0); MEAN CORPUSCULAR HEMOGLOBIN 28.8 pg (27.0-31.0); MEAN CORPUSCULAR HGB CONC 31.7 g/dL (32.0-36.0); MEAN CORPUSCULAR VOLUME 90.8 fL (82.0-92.0); MEAN PLATELET VOLUME 10.7 fL (7.4-10.4); MONOCYTES ABSOLUTE AUTO 0.79 10^3/uL (0.10-0.80); MONOCYTES PERCENT AUTO 8.9 % (2.0-8.0); NEUTROPHILS ABSOLUTE AUTO 6.39 10^3/uL (2.50-7.00); NEUTROPHILS PERCENT AUTO 71.8 % (50.0-70.0); PLATELET COUNT,PLT 201 10^3/uL (150-400); RED CELL DISTRIBUTION WIDTH 13.2 % (11.5-14.5)
[2023-05-18 07:27] LABS: ANION GAP 11.6 mmol/L (5-15); CALCIUM 7.4 mg/dL (8.7-10.3); CARBON DIOXIDE,CO2 31.9 mmol/L (21.0-32.0); CREATININE 0.91 mg/dL (0.51-1.17); EST CRCL DRUG DOSING (CG) 41.55 mL/min; MAGNESIUM 1.8 mg/dL (1.8-2.4); POTASSIUM,K 3.5 mmol/L (3.5-5.1)
[2023-05-18] MEDS ORDERED: Levothyroxine 88 MCG Tab PO SCH (07:30)
[2023-05-18] MEDS: Insulin Lispro 100 Unit/ML 3 ML KwikPen SUBCUT SCH ×2 (07:34→11:24)
[2023-05-18] MEDS ORDERED: Potassium Chloride 10 MEQ Tab.ER PO SCH (08:00)
[2023-05-18] MEDS: Timolol Maleate 0.5% Ophth Soln 5 ML Bottle EYEBOTH SCH (08:25)
[2023-05-18] MEDS: Losartan 50 MG Tab PO SCH (08:25)
[2023-05-18] MEDS: Calcium Carbonate 500 MG Tab.Chew PO SCH (08:26)
[2023-05-18] MEDS: Furosemide 40 MG/4 ML VIAL IVPUSH SCH (08:26)
[2023-05-18] MEDS: Apixaban 5 MG Tab PO SCH (08:26)
[2023-05-18] MEDS: guaiFENesin 600 MG Tab.ER PO SCH (08:26)
[2023-05-18] MEDS ORDERED: Multivitamins with Minerals/Iron/Folic Acid/Lycopene Tab PO SCH (09:00)
[2023-05-18] MEDS ORDERED: Metoprolol Succinate 50 MG Tab.ER PO SCH (09:00)
[2023-05-18] MEDS ORDERED: Magnesium Oxide 500 MG Tab PO SCH (10:15)
[2023-05-18] MEDS ORDERED: Metoprolol Tartrate 5 MG/5 ML SDV IVPUSH ONE (10:17)
== END 2023-05-18 15:40 | DRG 308 ==
LOC: KA.ED 15:27 → KA.MS 16:45
PROVIDERS: ADMIT Family Medicine; ATTEND Family Medicine
DX: I48.91 Unspecified atrial fibrillation (principal); J18.9 Pneumonia, unspecified organism; E78.00 Pure hypercholesterolemia, unspecified; J44.9 Chronic obstructive pulmonary disease, unspecified; M19.90 Unspecified osteoarthritis, unspecified site; E03.9 Hypothyroidism, unspecified; E11.65 Type 2 diabetes mellitus with hyperglycemia; I11.0 Hypertensive heart disease with heart failure; D72.829 Elevated white blood cell count, unspecified; I50.9 Heart failure, unspecified; Z88.5 Allergy status to narcotic agent; Z88.8 Allergy status to other drugs, medicaments and biological substances; Z91.018 Allergy to other foods; Z79.899 Other long term (current) drug therapy; Z79.01 Long term (current) use of anticoagulants; Z79.84 Long term (current) use of oral hypoglycemic drugs; Z98.890 Other specified postprocedural states; Z90.49 Acquired absence of other specified parts of digestive tract; Z90.710 Acquired absence of both cervix and uterus
CPT/HCPCS: 36415; 71045; 80048; 80053; 80061; 81001; 82947; 83036; 83605; 83735; 83880; 84145; 84443; 84484; 85025; 87040; 87086; 93010; 96365; 96366; 96375; 96376; 99284; 99285-25; A9270-GY; J0696; J1940; J3490